=== PATIENT | male | born 1955 | race Caucasian/White ===

== ENCOUNTER 2016-11-25 15:07 | Emergency (ER) | payer BC, OTHER ==
[~2016-11-25] VITALS: Ht 172.7 cm; Wt 79.4 kg
[2016-11-25] MEDS ORDERED: MECLIZINE HCL 25 MG TABLET ONE (15:23)
[2016-11-25] MEDS ORDERED: MECLIZINE HCL 12.5 MG TABLET PO ONE (15:30)
--- NOTE | 2016-11-25 15:49 | NUR ---
BIB SELF - DIZZINESS , NAUSEA AND VOMITING SINCE THIS MORNING, VSS, NAD NOTED, PUT ON TELE MONITOR, SKIN WARM AND DRY, RESP EVEN AND UNLABORED. MD AT BEDSIDE FOR EVAL
[2016-11-25 15:50] VITALS: BP 129/85
--- NOTE | 2016-11-25 15:50 | NUR ---
Patient discharged to home in stable condition. Written and verbal after care instructions given. Patient verbalizes understanding of instruction.
== END 2016-11-25 15:52 | disposition home or self-care (01) ==
LOC: ER 15:09
DX: R42 Dizziness and giddiness (principal); R11.2 Nausea with vomiting, unspecified; I10 Essential (primary) hypertension
CPT/HCPCS: 93005; 99283; A4606; J8597; Z7610

== ENCOUNTER 2016-11-30 09:23 | Outpatient (CLI) | payer BC, OTHER ==
[2016-11-30 10:19] LABS: BASOPHILS % (AUTO) 0.4 % (0.0-2.0); EOSINOPHILS # (AUTO) 0.2 /CMM (0.0-0.7); EOSINOPHILS % (AUTO) 2.7 % (0.0-6.0); HEMATOCRIT 50 % (39-51); HEMOGLOBIN 16.4 g/dL (13.5-17.5); LYMPHOCYTES # (AUTO) 1.9 /CMM (0.8-4.8); LYMPHOCYTES % (AUTO) 28.2 % (20.0-44.0); MEAN CORPUSCULAR HEMOGLOBIN 30 PG (26.0-33.0); MEAN CORPUSCULAR HGB CONC 33 g/dl (31.0-36.0); MEAN CORPUSCULAR VOLUME 92 fL (80-96); MONOCYTES # (AUTO) 0.5 /CMM (0.1-1.30); MONOCYTES % (AUTO) 7.2 % (2.0-12.0); NEUTROPHILS # (AUTO) 4.1 /CMM (1.8-8.9); NEUTROPHILS % (AUTO) 61.5 % (43.0-81.0); PLATELET COUNT (AUTO) 270 /CMM (150-450); RDW COEFFICIENT OF VARIATION 13.6 (11.5-15.0); RED BLOOD CELL COUNT(AUTO) 5.39 MIL/uL (4.5-6.0); WHITE BLOOD COUNT (AUTO) 6.7 K/uL (4.3-11.0)
[2016-11-30 10:24] LABS: APPEARANCE,URINE CLEAR (CLEAR); BILIRUBIN,URINE NEGATIVE (NEGATIVE); BLOOD, URINE NEGATIVE Ery/uL (NEGATIVE); COLOR,URINE ORANGE (YELLOW); KETONES,URINE NEGATIVE (NEGATIVE); LEUKOCYTE ESTERASE ,URINE NEGATIVE (NEGATIVE); NITRITE, URINE NEGATIVE (NEGATIVE); PH,URINE 5.5 (5.0-8.0); PROTEIN,URINE NEGATIVE (NEGATIVE); UGLUCOSE NEGATIVE (NEGATIVE); UROBILINOGEN,URINE 0.2 EU/dL (0.2)
[2016-11-30 10:38] LABS: ALBUMIN 4.4 g/dL (3.4-5.0); BILIRUBIN,TOTAL 1.5 mg/dL (0.2-1.0); CALCIUM, SERUM 8.8 mg/dL (8.5-10.1); CREATININE 0.9 mg/dL (0.6-1.3); POTASSIUM 3.7 mmol/L (3.5-5.1); TOTAL PROTEIN, SERUM 8.6 g/dL (6.4-8.2)
[2016-11-30 10:39] LABS: BACTERIA,URINE None seen /HPF (None Seen); RBC,URINE NONE SEEN /HPF (0-2); SQUAMOUS EPITHELIAL CELL,UR Few /HPF (None Seen); WBC,URINE 0-2 /HPF (0-3)
[2016-11-30 10:51] LABS: PROSTATE SPECIFIC ANTIGEN SCR 0.68 ng/mL (0.00-4.00); THYROID STIMULATING HORMONE 0.915 uIU/mL (0.358-3.74)
[2016-12-02 16:15] LABS: *TESTOSTERONE, FREE (DIRECT) 7.8 pg/mL (6.6-18.1)
== END 2016-11-30 23:59 | disposition home or self-care (01) ==
LOC: LAB 09:23
PROVIDERS: ATTEND Legal Medicine
DX: Z00.01 Encounter for general adult medical examination with abnormal findings (principal); R79.89 Other specified abnormal findings of blood chemistry; E78.5 Hyperlipidemia, unspecified; E55.9 Vitamin D deficiency, unspecified
CPT/HCPCS: 36415; 80053-TC; 80061-TC; 81000-TC; 82306; 84153-TC; 84402-TC; 84439-TC; 84443-TC; 84550-TC; 85025-TC

== ENCOUNTER 2018-02-01 08:32 | Outpatient (CLI) | payer BC ==
[2018-02-01 11:56] LABS: BASOPHILS % (AUTO) 0.7 % (0.0-2.0); EOSINOPHILS % (AUTO) 3.5 % (0.0-6.0); HEMATOCRIT 57 % (39-51); HEMOGLOBIN 18.8 g/dL (13.5-17.5); LYMPHOCYTES # (AUTO) 2.1 /CMM (0.8-4.8); MEAN CORPUSCULAR HGB CONC 33 g/dl (31.0-36.0); MEAN CORPUSCULAR VOLUME 96 fL (80-96); MONOCYTES # (AUTO) 0.6 /CMM (0.1-1.30); MONOCYTES % (AUTO) 8.8 % (2.0-12.0); NEUTROPHILS # (AUTO) 3.6 /CMM (1.8-8.9); PLATELET COUNT (AUTO) 228 /CMM (150-450); RED BLOOD CELL COUNT(AUTO) 5.95 MIL/uL (4.5-6.0); WHITE BLOOD COUNT (AUTO) 6.5 K/uL (4.3-11.0)
[2018-02-01 11:57] LABS: APPEARANCE,URINE CLEAR (CLEAR); BILIRUBIN,URINE NEGATIVE (NEGATIVE); BLOOD, URINE NEGATIVE Ery/uL (NEGATIVE); COLOR,URINE YELLOW (YELLOW); KETONES,URINE NEGATIVE (NEGATIVE); LEUKOCYTE ESTERASE ,URINE NEGATIVE (NEGATIVE); NITRITE, URINE NEGATIVE (NEGATIVE); PROTEIN,URINE NEGATIVE (NEGATIVE); UGLUCOSE NEGATIVE (NEGATIVE); UROBILINOGEN,URINE 0.2 EU/dL (0.2)
[2018-02-01 12:12] LABS: BILIRUBIN,TOTAL 1.8 mg/dL (0.2-1.0); CALCIUM, SERUM 8.8 mg/dL (8.5-10.1); POTASSIUM 4.1 mmol/L (3.5-5.1); TOTAL PROTEIN, SERUM 8.5 g/dL (6.4-8.2)
[2018-02-01 12:24] LABS: FREE T4 (FREE THYROXINE) 1.17 ng/dL (0.76-1.46); PROSTATE SPECIFIC ANTIGEN SCR 0.69 ng/mL (0.00-4.00); THYROID STIMULATING HORMONE 1.672 uIU/mL (0.358-3.74)
[2018-02-02 12:12] LABS: *FOLIC ACID 8.2 ng/mL (>3.0)
== END 2018-02-01 23:59 | disposition home or self-care (01) ==
LOC: LAB 08:32
PROVIDERS: ATTEND Legal Medicine
DX: Z00.01 Encounter for general adult medical examination with abnormal findings (principal); E11.9 Type 2 diabetes mellitus without complications; I10 Essential (primary) hypertension; E78.5 Hyperlipidemia, unspecified
CPT/HCPCS: 36415; 80053-TC; 80061-TC; 81000-TC; 82306; 82728-TC; 83540-TC; 84153-TC; 84403; 84439-TC; 84443-TC; 85025-TC; 85045-TC

== ENCOUNTER 2018-08-25 21:32 | Emergency (ER) | payer BC, OTHER ==
[~2018-08-25] VITALS: Ht 172.7 cm; Wt 78.9 kg
[2018-08-25 21:38] VITALS: BP 150/78
[2018-08-25] MEDS ORDERED: TDAP [DIPH/PERTUSSIS/TET] 0.5 ML VIAL IM ONE ×2 (22:27→22:30)
[2018-08-25] MEDS ORDERED: AMOX/CLAVULANATE 875 MG TABLET ONE (22:27)
[2018-08-25] MEDS ORDERED: AMOX/CLAVULANATE 875 MG TABLET PO ONE (22:30)
--- NOTE | 2018-08-25 22:36 | NUR ---
Patient discharged to home in stable condition. Written and verbal after care instructions given. Patient verbalizes understanding of instruction. Pt ambulatory with a steady gait
== END 2018-08-25 22:40 | disposition home or self-care (01) ==
LOC: ER 21:36
DX: S51.851A Open bite of right forearm, initial encounter (principal); I10 Essential (primary) hypertension; W50.3XXA Accidental bite by another person, initial encounter; Y93.89 Activity, other specified; Y92.89 Other specified places as the place of occurrence of the external cause; Y99.8 Other external cause status
CPT/HCPCS: 90715

== ENCOUNTER 2019-04-09 08:38 | Outpatient (CLI) | payer BC ==
[2019-04-09 09:55] LABS: ALBUMIN 3.9 g/dL (3.4-5.0); BILIRUBIN,TOTAL 2.1 mg/dL (0.2-1.0); CALCIUM, SERUM 8.5 mg/dL (8.5-10.1); POTASSIUM 4.2 mmol/L (3.5-5.1); TOTAL PROTEIN, SERUM 8.1 g/dL (6.4-8.2)
== END 2019-04-09 23:59 | disposition home or self-care (01) ==
LOC: LAB 08:38
PROVIDERS: ATTEND Internal Medicine Cardiovascular Disease
DX: I10 Essential (primary) hypertension (principal); E78.5 Hyperlipidemia, unspecified
CPT/HCPCS: 36415; 80053-TC; 80061-TC

== ENCOUNTER 2019-08-20 18:09 | Emergency (ER) | payer BC, OTHER ==
[~2019-08-20] VITALS: Ht 172.7 cm; Wt 78.9 kg
[2019-08-20] MEDS ORDERED: ONDANSETRON HCL/PF 4 MG/2 ML VIAL IVP ONE (18:30)
[2019-08-20] MEDS ORDERED: KETOROLAC TROMETHAMINE INJ 30 MG/ML VIAL IV ONE (18:30)
[2019-08-20] MEDS ORDERED: ONDANSETRON HCL/PF 4 MG/2 ML VIAL ONE ×2 (18:37→19:45)
[2019-08-20] MEDS ORDERED: KETOROLAC TROMETHAMINE 15 MG/ML VIAL ONE (18:37)
[2019-08-20 18:43] LABS: BASOPHILS # (AUTO) 0.1 /CMM (0.0-0.2); BASOPHILS % (AUTO) 0.9 % (0.0-2.0); EOSINOPHILS % (AUTO) 2.6 % (0.0-6.0); HEMATOCRIT 51 % (39-51); HEMOGLOBIN 17.6 g/dL (13.5-17.5); LYMPHOCYTES # (AUTO) 2.1 /CMM (0.8-4.8); LYMPHOCYTES % (AUTO) 33.6 % (20.0-44.0); MEAN CORPUSCULAR HGB CONC 34 g/dl (31.0-36.0); MEAN CORPUSCULAR VOLUME 95 fL (80-96); MONOCYTES # (AUTO) 0.6 /CMM (0.1-1.30); MONOCYTES % (AUTO) 9.5 % (2.0-12.0); NEUTROPHILS # (AUTO) 3.3 /CMM (1.8-8.9); NEUTROPHILS % (AUTO) 53.4 % (43.0-81.0); PLATELET COUNT (AUTO) 234 /CMM (150-450); RED BLOOD CELL COUNT(AUTO) 5.39 MIL/uL (4.5-6.0); WHITE BLOOD COUNT (AUTO) 6.1 K/uL (4.3-11.0)
--- NOTE | 2019-08-20 18:50 | NUR ---
patient came in to the er c/o epigastric pain radiating to back. on room air, breathing evenly and unlabored. connected to the monitor and pulse ox. kept comfortable, will continue to monitor accordingly.
--- NOTE | 2019-08-20 18:51 | NUR ---
automotive refinish technician at bedside for exam
[2019-08-20 18:52] LABS: APPEARANCE,URINE Clear (CLEAR); BILIRUBIN,URINE Negative (NEGATIVE); BLOOD, URINE Trace-intact Ery/uL (NEGATIVE); COLOR,URINE Yellow (YELLOW); KETONES,URINE Negative (NEGATIVE); LEUKOCYTE ESTERASE ,URINE Negative (NEGATIVE); NITRITE, URINE Negative (NEGATIVE); PH,URINE 7.5 (5.0-8.0); PROTEIN,URINE Negative (NEGATIVE); UGLUCOSE 500 MG/DL mg/dL (NEGATIVE); UROBILINOGEN,URINE 0.2 EU/dL (0.2)
[2019-08-20 18:59] LABS: ALBUMIN 4.3 g/dL (3.4-5.0); BILIRUBIN,DIRECT 0.1 mg/dL (0.0-0.2); BILIRUBIN,TOTAL 0.7 mg/dL (0.2-1.0); CALCIUM, SERUM 8.7 mg/dL (8.5-10.1); CREATININE 1.3 mg/dL (0.6-1.3); POTASSIUM 3.6 mmol/L (3.5-5.1); TOTAL PROTEIN, SERUM 8.5 g/dL (6.4-8.2)
--- NOTE | 2019-08-20 19:00 | NUR ---
REPORT REC'D FROM ONUR PINEDA FOR [facility].
[2019-08-20 19:04] LABS: BACTERIA,URINE Rare /HPF (None Seen); SQUAMOUS EPITHELIAL CELL,UR Few /HPF (None Seen); WBC,URINE NONE SEEN /HPF (0-3)
--- NOTE | 2019-08-20 19:15 | NUR ---
PT AMBULATED TO THE BATHROOM WITH A STEADY GAIT.
[2019-08-20] MEDS ORDERED: MORPHINE SULFATE INJ 2 MG/ML DISP.SYRIN ONE ×2 (19:45→20:34)
--- NOTE | 2019-08-20 19:45 | NUR ---
PT C/O EPIGASTRIC PAIN. PT STATED THAT HE WILL GET SOMEONE TO TAKE HIM HOME. PT WILL LEAVE HIS CAR IN THE PARKING LOT. NOTIFIED.
[2019-08-20] MEDS ORDERED: MORPHINE SULFATE INJ 2 MG/ML DISP.SYRIN IV ONE ×2 (20:00→20:30)
[2019-08-20] MEDS ORDERED: ONDANSETRON HCL/PF - ER 4 MG/2 ML VIAL IV ONE (20:00)
--- NOTE | 2019-08-20 20:37 | NUR ---
PT IS STILL C/O EPIGASTRIC PAIN. DR MAZA IS AWARE. NEW ORDERS GIVEN AND CARRIED OUT BY ONUR LAYTON.
--- NOTE | 2019-08-20 20:50 | NUR ---
IV removed. Catheter intact and site benign. Pressure and 4x4 applied to site. No bleeding noted. Patient discharged to home in stable condition. Written and verbal after care instructions given. Patient verbalizes understanding of instruction.
[2019-08-20 21:08] VITALS: BP 145/91
== END 2019-08-20 21:08 | disposition home or self-care (01) ==
LOC: ER 18:15
DX: K80.50 Calculus of bile duct without cholangitis or cholecystitis without obstruction (principal); R73.9 Hyperglycemia, unspecified; K76.0 Fatty (change of) liver, not elsewhere classified; I10 Essential (primary) hypertension
CPT/HCPCS: 36415; 76705; 80048; 80076; 81001; 83690; 85025; 93005; 96374; 96375; 96376; 99285; J1885; J2270 ×2; J2405 ×3; 81000-TC

== ENCOUNTER 2019-08-22 07:13 | Inpatient (IN) | payer BC, OTHER ==
[~2019-08-22] VITALS: Ht 170.2 cm; Wt 79.4 kg
[2019-08-22] MEDS ORDERED: PIPERACILLIN /TAZOBACTAM 3.375 G in IV D5W 50 ML IV ONE (07:30)
--- NOTE | 2019-08-22 07:35 | NUR ---
CALLED PHARMACY FOR ANTIBIOTIC.
[2019-08-22] MEDS ORDERED: PIPERACILLIN /TAZOBACTAM 3.375 G VIAL IV ONE (07:42)
[2019-08-22] MEDS ORDERED: AMLO10TA7 PO (07:48)
[2019-08-22] MEDS ORDERED: BENA10TA74 PO (07:48)
[2019-08-22 07:51] LABS: BASOPHILS # (AUTO) 0.1 /CMM (0.0-0.2); BASOPHILS % (AUTO) 0.8 % (0.0-2.0); EOSINOPHILS % (AUTO) 0.4 % (0.0-6.0); HEMATOCRIT 48 % (39-51); HEMOGLOBIN 16.3 g/dL (13.5-17.5); LYMPHOCYTES # (AUTO) 1.4 /CMM (0.8-4.8); LYMPHOCYTES % (AUTO) 8.9 % (20.0-44.0); MEAN CORPUSCULAR HGB CONC 34 g/dl (31.0-36.0); MEAN CORPUSCULAR VOLUME 95 fL (80-96); MONOCYTES # (AUTO) 1.4 /CMM (0.1-1.30); NEUTROPHILS # (AUTO) 12.8 /CMM (1.8-8.9); NEUTROPHILS % (AUTO) 80.9 % (43.0-81.0); PLATELET COUNT (AUTO) 216 /CMM (150-450); RED BLOOD CELL COUNT(AUTO) 5.07 MIL/uL (4.5-6.0); WHITE BLOOD COUNT (AUTO) 15.8 K/uL (4.3-11.0)
[2019-08-22 07:59] LABS: CALCIUM, SERUM 8.7 mg/dL (8.5-10.1); CREATININE 1.2 mg/dL (0.6-1.3); POTASSIUM 4.2 mmol/L (3.5-5.1)
--- NOTE | 2019-08-22 08:00 | NUR ---
patient came in to the er c/o "Abdominal Pain- was seen here last monday dx gallstones- Pain still there. on room air breathing evenly and unlabored connected the monitor and pulse ox. will continue to monitor accordingly.
[2019-08-22 08:05] LABS: ALBUMIN 3.6 g/dL (3.4-5.0); BILIRUBIN,DIRECT 0.3 mg/dL (0.0-0.2); BILIRUBIN,TOTAL 2.9 mg/dL (0.2-1.0); TOTAL PROTEIN, SERUM 7.4 g/dL (6.4-8.2)
[2019-08-22 08:10] LABS: APPEARANCE,URINE Clear (CLEAR); BACTERIA,URINE Rare /HPF (None Seen); BILIRUBIN,URINE Negative (NEGATIVE); BLOOD, URINE Trace-intact Ery/uL (NEGATIVE); COLOR,URINE Yellow (YELLOW); KETONES,URINE Trace (NEGATIVE); LEUKOCYTE ESTERASE ,URINE Negative (NEGATIVE); NITRITE, URINE Negative (NEGATIVE); PROTEIN,URINE 30 mg/dl (NEGATIVE); SQUAMOUS EPITHELIAL CELL,UR Rare /HPF (None Seen); UGLUCOSE Negative (NEGATIVE); WBC,URINE 0-2 /HPF (0-3)
--- NOTE | 2019-08-22 08:16 | NUR ---
NURSING SUP GAVE M/S 207-1.
--- NOTE | 2019-08-22 08:19 | NUR ---
PAGED [facility].
--- NOTE | 2019-08-22 08:23 | NUR ---
report given to lilian davis for los
[2019-08-22] MEDS ORDERED: MORPHINE SULFATE INJ 2 MG/ML DISP.SYRIN IV ONE (08:30)
[2019-08-22] MEDS ORDERED: ONDANSETRON HCL/PF 4 MG/2 ML VIAL IVP ONE (08:30)
[2019-08-22] MEDS ORDERED: ONDANSETRON HCL/PF 4 MG/2 ML VIAL ONE (08:31)
[2019-08-22] MEDS ORDERED: MORPHINE SULFATE INJ 4 MG/ML DISP.SYRIN ONE (08:32)
--- NOTE | 2019-08-22 08:35 | NUR ---
PAGED DR. MONTES.
--- NOTE | 2019-08-22 09:01 | NUR ---
wheeled patient via gurney accompanied by EMT in no distress. RN at bedside to assume care.
[2019-08-22 09:30] VITALS: BP 130/67
[2019-08-22 12:00] VITALS: BP 133/76
--- NOTE | 2019-08-22 12:15 | NUR ---
RN NOTE Patient received from Leeann MOHR for WIL[facility]. Patient is A/O x4, showing no signs of acute distress or SOB, stable on RA. Vital signs 133/76 HR 100 O2 96% on RA T 99.2 F. IV line in the LAC #18g is clean and intact flushing well. Skin is intact. Patient picked up by radiology at this time for HIDA scan. Consent signed and placed in chart. Will continue with plan of care.
[2019-08-22] MEDS ORDERED: ONDANSETRON HCL/PF 4 MG/2 ML VIAL IV PRN (12:30)
[2019-08-22] MEDS: ENOXAPARIN SODIUM 40 MG/0.4 ML DISP.SYRIN SQ SCH (13:00)
--- NOTE | 2019-08-22 14:34 | NUR ---
RN NOTE Patient has returned from HIDA scan and MRCP. Ok per Sis DIRECTOR OF CARDIOLOGY SERVICE LINE to start patient on clear liquids and then NPO after midnight.
[2019-08-22] MEDS: IV D5/ 0.9% NACL 1,000 ML IV SCH (14:47)
[2019-08-22] MEDS: PANTOPRAZOLE 40 MG VIAL IV SCH (14:49)
[2019-08-22] MEDS: MORPHINE SULFATE INJ 2 MG/ML DISP.SYRIN IV PRN ×2 (14:51→21:27)
[2019-08-22] MEDS: PIPERACILLIN /TAZOBACTAM 3.375 G in IV D5W 100 ML IV SCH ×2 (15:57→21:27)
[2019-08-22 16:00] VITALS: BP 137/74
--- NOTE | 2019-08-22 16:00 | NUR ---
RN NOTE COVID swab sent to lab.
--- NOTE | 2019-08-22 16:32 | NUR ---
RN NOTE Patient has temp of 100.1. Cooling measures implemented, tylenol given.
[2019-08-22] MEDS: ACETAMINOPHEN 650 MG/20.3 ML UDC NG PRN (16:33)
--- NOTE | 2019-08-22 19:00 | NUR ---
RN CLOSING NOTE Patient is resting in bed, A/O x4, showing no signs of acute distress or SOB, stable on RA. IV line inserted in right hand #20g flushing well. All patient needs met, all due medications given. Patient is to be NPO after midnight. Bed is in lowest position, side rails x3 in upright position, call light is within reach, fall safety and aspiration precautions enforced. Will endorse to night filler.
--- NOTE | 2019-08-22 19:30 | NUR ---
MS RN RECEIVE PT IN BED A/O X 4, NOT IN DISTRESS, STABLE. SAFETY MEASURES AT ALL TIMES. WILL CONT TO MONITOR.
[2019-08-22 20:00] VITALS: BP 114/66
[2019-08-22 20:27] VITALS: BP 114/66
[2019-08-23] MEDS: IV D5/ 0.9% NACL 1,000 ML IV SCH ×3 (02:07→20:42)
[2019-08-23] MEDS: MORPHINE SULFATE INJ 2 MG/ML DISP.SYRIN IV PRN ×3 (02:08→18:45)
[2019-08-23] MEDS: PIPERACILLIN /TAZOBACTAM 3.375 G in IV D5W 100 ML IV SCH ×3 (05:04→21:01)
--- NOTE | 2019-08-23 06:08 | NUR ---
MS RN SLEPT WELL, AFEBRILE. NO S/S OF DISTRESS. MONITORED FOR PAIN. MEDICATED WITH PRN PAIN MEDS WITH RELIEF. ALL NEEDS ATTENDED AND ANTICIPATED, KEPT CLEAN, DRY AND COMFORTABLE. AM CARE RENDERED, SAFETY MEASURES AT ALL TIMES. WILL ENDORSE TO NEXT SHIFT.
[2019-08-23 08:00] VITALS: BP 111/70
[2019-08-23 08:58] LABS: MAGNESIUM 2.1 mg/dL (1.8-2.4); PHOSPHORUS 2.6 mg/dL (2.5-4.9)
[2019-08-23] MEDS: BENAZEPRIL HCL 10 MG TABLET PO SCH (09:00)
[2019-08-23] MEDS: ENOXAPARIN SODIUM 40 MG/0.4 ML DISP.SYRIN SQ SCH (09:00)
[2019-08-23] MEDS: AMLODIPINE BESYLATE 10 MG TABLET PO SCH (09:00)
[2019-08-23 12:07] LABS: THYROID STIMULATING HORMONE 1.135 uIU/mL (0.358-3.74)
[2019-08-23] MEDS ORDERED: LIDOCAINE HCL/MPF 1% 30 ML VIAL IJ ONE (12:41)
[2019-08-23] MEDS ORDERED: BUPIVACAINE MPF 0.5% W/EPI INJ 30 ML VIAL ONE (12:42)
[2019-08-23] MEDS ORDERED: FENTANYL PF 100MCG/2ML AMPUL ONE (14:20)
[2019-08-23 16:00] VITALS: BP 111/62
[2019-08-23] MEDS: ACETAMINOPHEN 650 MG/20.3 ML UDC NG PRN (16:42)
[2019-08-23] MEDS: PANTOPRAZOLE 40 MG VIAL IV SCH (16:44)
--- NOTE | 2019-08-23 19:30 | NUR ---
MS RN RECEIVE PT IN BED A/O X 4, BRAULIO DRAIN INTACT, S/P SX, NO C/O OF PAIN, NO S/S OF DISTRESS, SAFETY MEASURES AT ALL TIMES. WILL CONT TO MONITOR
[2019-08-23 20:00] VITALS: BP 116/66
[2019-08-23 20:21] VITALS: BP 116/66
[2019-08-24] MEDS: IV D5/ 0.9% NACL 1,000 ML IV SCH ×3 (04:48→21:09)
[2019-08-24] MEDS: MORPHINE SULFATE INJ 2 MG/ML DISP.SYRIN IV PRN ×3 (04:49→21:43)
[2019-08-24] MEDS: PIPERACILLIN /TAZOBACTAM 3.375 G in IV D5W 100 ML IV SCH ×3 (05:00→21:12)
--- NOTE | 2019-08-24 05:49 | NUR ---
MS RN PT SLEPT WELL. BRAULIO DRAIN CLEAN AND INTACT. MONITORED FOR PAIN, NEEDS ATTENDED AND ANTICIPATED, KEPT CLEAN, DRY AND COMFORTABLE. NURSING CARE RENDERED, SAFETY MEASURES AT ALL TIMES. WILL ENDORSE TO NEXT SHIFT.
[2019-08-24 07:14] LABS: BASOPHILS % (AUTO) 0.2 % (0.0-2.0); HEMATOCRIT 46 % (39-51); HEMOGLOBIN 15.2 g/dL (13.5-17.5); LYMPHOCYTES # (AUTO) 0.8 /CMM (0.8-4.8); LYMPHOCYTES % (AUTO) 6.8 % (20.0-44.0); MEAN CORPUSCULAR HGB CONC 33 g/dl (31.0-36.0); MEAN CORPUSCULAR VOLUME 96 fL (80-96); MONOCYTES # (AUTO) 0.8 /CMM (0.1-1.30); NEUTROPHILS # (AUTO) 9.5 /CMM (1.8-8.9); PLATELET COUNT (AUTO) 225 /CMM (150-450)
[2019-08-24 07:23] LABS: BILIRUBIN,TOTAL 2.6 mg/dL (0.2-1.0); CALCIUM, SERUM 8.4 mg/dL (8.5-10.1); MAGNESIUM 2.2 mg/dL (1.8-2.4); PHOSPHORUS 2.5 mg/dL (2.5-4.9); POTASSIUM 3.6 mmol/L (3.5-5.1); TOTAL PROTEIN, SERUM 7.8 g/dL (6.4-8.2)
--- NOTE | 2019-08-24 07:40 | NUR ---
MS RN NOTES RECEIVED PATIENT IN BED RESTING COMFORTABLY IN MODERATE HIGH BACK REST. A/O X4. ABLE TO MAKE NEEDS KNOWN. NO SIGNS OF DISTRESS NOTED AT THIS TIME. NOTED WITH BRAULIO DRAIN CLEAN AND INTACT. IV FLUIDS ON RIGHT HAND #20 WITH D5NS RUNNING @75 ML/HR. PATENT AND INTACT, SAFETY MEASURES IN PLACE WITH BED IN LOWEST LOCKED POSITION WITH SIDE RAILS UP X2. CALL LIGHT WITHIN REACH. WILL CONTINUE TO MONITOR.
[2019-08-24 08:00] VITALS: BP 138/78
[2019-08-24] MEDS ORDERED: IBUPROFEN 600 MG TABLET PO PRN (08:00)
[2019-08-24] MEDS: BENAZEPRIL HCL 10 MG TABLET PO SCH (09:17)
[2019-08-24] MEDS: AMLODIPINE BESYLATE 10 MG TABLET PO SCH (09:17)
[2019-08-24] MEDS: ENOXAPARIN SODIUM 40 MG/0.4 ML DISP.SYRIN SQ SCH (09:23)
[2019-08-24] MEDS: HYDROCODONE/APAP 5/325MG 1 EACH TABLET PO PRN (09:48)
[2019-08-24] MEDS ORDERED: BISACODYL (5 MG) 5 MG TABLET.DR PO PRN (11:30)
[2019-08-24] MEDS ORDERED: BISACODYL (5 MG) 5 MG TABLET.DR PO ONE (11:30)
[2019-08-24] MEDS: PANTOPRAZOLE 40 MG VIAL IV SCH (11:37)
--- NOTE | 2019-08-24 18:50 | NUR ---
MS RN NOTES PATIENT IN BED RESTING COMFORTABLY IN MODERATE HIGH BACK REST. A/O X4. ABLE TO MAKE NEEDS KNOWN. NO SIGNS OF DISTRESS NOTED THROUGHOUT THE SHIFT. PAIN IS MANAGEABLE WITH PAIN MEDICATION, NOTED WITH BRAULIO DRAIN WITH OUTPUT OF 40ML, CLEAN AND INTACT. IV FLUIDS ON RIGHT HAND #20 WITH D5NS RUNNING @75 ML/HR. PATENT AND INTACT, SAFETY MEASURES IN PLACE WITH BED IN LOWEST LOCKED POSITION WITH SIDE RAILS UP X2. CALL LIGHT WITHIN REACH. WILL ENDORSE TO CORPORATE DIRECTOR OF HUMAN RESOURCES NURSE FOR [facility].
--- NOTE | 2019-08-24 19:23 | NUR ---
MS RN RECEIVE PT WALKING IN ROOM A/O X 4, NOT IN DISTRESS, BRAULIO DRAIN INTACT. STABLE. SAFETY MEASURES AT ALL TIMES. WILL CONT TO MONITOR.
[2019-08-24 20:00] VITALS: BP 135/74
[2019-08-24 20:20] VITALS: BP 135/74
--- NOTE | 2019-08-24 21:43 | NUR ---
MS RN PT REQUEST MORPHINE 2 MG IVP PER PT NORCO INEFFECTIVE AT THIS TIME. PAIN IN ABDOMEN. WILL GIVE MORPHINE
[2019-08-25] MEDS: HYDROCODONE/APAP 5/325MG 1 EACH TABLET PO PRN ×2 (02:44→10:14)
[2019-08-25] MEDS: IV D5/ 0.9% NACL 1,000 ML IV SCH (05:11)
[2019-08-25] MEDS: PIPERACILLIN /TAZOBACTAM 3.375 G in IV D5W 100 ML IV SCH ×2 (05:11→14:00)
--- NOTE | 2019-08-25 05:47 | NUR ---
MS RN NO SIGNIFICANT CHANGES, GOOD SKIN CARE AT ALL TIMES, MONITORED ACCORDINGLY, NEEDS ATTENDED AND ANTICIPATED, KEPT CLEAN, DRY AND COMFORTABLE. SAFETY MEASURES AT ALL TIMES. WILL ENDORSE TO NEXT SHIFT.
--- NOTE | 2019-08-25 07:10 | NUR ---
MS RN NOTES RECEIVED PATIENT IN BED RESTING COMFORTABLY IN MODERATE HIGH BACK REST. A/O X4. ABLE TO MAKE NEEDS KNOWN. NO SIGNS OF DISTRESS NOTED AT THIS TIME. NOTED WITH BRAULIO DRAIN CLEAN AND INTACT. IV FLUIDS ON LEFT HAND #22 WITH D5NS RUNNING @125 ML/HR. PATENT AND INTACT, SAFETY MEASURES IN PLACE WITH BED IN LOWEST LOCKED POSITION WITH SIDE RAILS UP X2. CALL LIGHT WITHIN REACH. WILL CONTINUE TO MONITOR.
[2019-08-25 08:00] VITALS: BP 126/73
[2019-08-25] MEDS: ENOXAPARIN SODIUM 40 MG/0.4 ML DISP.SYRIN SQ SCH (08:30)
[2019-08-25 08:35] VITALS: BP 126/73
[2019-08-25] MEDS: AMLODIPINE BESYLATE 10 MG TABLET PO SCH (08:35)
[2019-08-25] MEDS: BENAZEPRIL HCL 10 MG TABLET PO SCH (08:35)
[2019-08-25] MEDS: PANTOPRAZOLE 40 MG VIAL IV SCH (11:42)
[2019-08-25] MEDS ORDERED: AMOX-430 PO (14:01)
[2019-08-25] MEDS ORDERED: ONDA4TAB5 PO (14:01)
[2019-08-25] MEDS ORDERED: HYDR-4384 PO (14:01)
--- NOTE | 2019-08-25 14:39 | NUR ---
LENS CLEANER NOTES PATIENT DISCHARGED IN STABLE CONDITION. A/O X 4. ABLE TO MAKE NEEDS KNOWN. V/S TAKEN, STABLE AND RECORDED. PATIENT'S IV REMOVED AND APPLIED PRESSURE DRESSINGS. NAME ARM BAND REMOVED. SKIN IS INTACT. ALL BELONGINGS CHECKED AND SIGNED. NAME ARM BAND REMOVED. HEALTH TEACHINGS/DISCHARGED INSTRUCTIONS GIVEN AND VERBALIZED UNDERSTANDING. PATIENT LEFT UNIT AMBULATORY WITH NO SIGNS OF DISTRESS NOTED, ACCOMPANIED BY . CHARGE NURSE AWARE OF DISCHARGED.
== END 2019-08-25 14:40 | disposition home or self-care (01) | DRG 406 ==
LOC: ER 07:13 → MEDSG2 08:46
PROVIDERS: ADMIT Legal Medicine; ATTEND Legal Medicine
PROC: 0WQF0ZZ Repair Abdominal Wall, Open Approach (ICD-10-PCS; principal; 2019-08-23)
PROC: 0FB00ZZ Excision of Liver, Open Approach (ICD-10-PCS; principal; 2019-08-23)
PROC: 0FT40ZZ Resection of Gallbladder, Open Approach (ICD-10-PCS; principal; 2019-08-23)
DX: K80.12 Calculus of gallbladder with acute and chronic cholecystitis without obstruction (principal); N17.9 Acute kidney failure, unspecified; D72.829 Elevated white blood cell count, unspecified; I10 Essential (primary) hypertension; Z79.899 Other long term (current) drug therapy; I70.0 Atherosclerosis of aorta; K59.00 Constipation, unspecified; M19.90 Unspecified osteoarthritis, unspecified site; Z87.891 Personal history of nicotine dependence; K82.8 Other specified diseases of gallbladder; K76.0 Fatty (change of) liver, not elsewhere classified; K40.20 Bilateral inguinal hernia, without obstruction or gangrene, not specified as recurrent; Z98.890 Other specified postprocedural states; K43.9 Ventral hernia without obstruction or gangrene; K82.A1 Gangrene of gallbladder in cholecystitis; R73.9 Hyperglycemia, unspecified
CPT/HCPCS: 36415; 71045-TC; 74181-TC; 78226; 80048-TC; 80053-TC; 80061-TC; 80076-TC; 81000-TC; 83605-TC; 83735-TC; 84100-TC; 84439-TC; 84443-TC; 85025-TC; 85730-TC; 87040-TC; 87081-TC; 88304-TC; 88307-TC; 88313-TC; 93307-TC; A9537; C9113; G0378; J1100; J1650; J1885; J2270; J2405; J2543; J2710; J3010; J3490; J7042; J7060; U0003-CS

== ENCOUNTER 2019-10-14 09:02 | Outpatient (CLI) | payer BC, OTHER ==
[~2019-10-14 09:02] MED LIST: AMLO10TA7 PO; AMOX-430 PO; BENA10TA74 PO; HYDR-4384 PO; ONDA4TAB5 PO
== END 2019-10-14 23:59 | disposition home or self-care (01) ==
LOC: LAB 09:02
PROVIDERS: ATTEND Legal Medicine
DX: Z75.3 Unavailability and inaccessibility of health-care facilities (principal)

== ENCOUNTER 2019-10-21 09:35 | Outpatient (CLI) | payer BC, OTHER | END 2019-10-21 23:59 | disposition home or self-care (01) | LOC: LAB 09:35 | PROVIDERS: ATTEND Surgery | DX: Z01.812 Encounter for preprocedural laboratory examination (principal); Z11.59 Encounter for screening for other viral diseases | CPT/HCPCS: 87426; C9803 ==

== ENCOUNTER 2019-10-24 06:11 | Day surgery (SDC) | payer BC, MEDICARE ==
[2019-10-14 09:40] LABS: BASOPHILS # (AUTO) 0.1 /CMM (0.0-0.2); BASOPHILS % (AUTO) 1.8 % (0.0-2.0); EOSINOPHILS % (AUTO) 2.4 % (0.0-6.0); HEMATOCRIT 54 % (39-51); HEMOGLOBIN 17.9 g/dL (13.5-17.5); LYMPHOCYTES # (AUTO) 2.4 /CMM (0.8-4.8); LYMPHOCYTES % (AUTO) 36.7 % (20.0-44.0); MEAN CORPUSCULAR HGB CONC 33 g/dl (31.0-36.0); MEAN CORPUSCULAR VOLUME 95 fL (80-96); MONOCYTES # (AUTO) 0.4 /CMM (0.1-1.30); NEUTROPHILS # (AUTO) 3.4 /CMM (1.8-8.9); NEUTROPHILS % (AUTO) 52.1 % (43.0-81.0); PLATELET COUNT (AUTO) 226 /CMM (150-450); RED BLOOD CELL COUNT(AUTO) 5.65 MIL/uL (4.5-6.0); WHITE BLOOD COUNT (AUTO) 6.4 K/uL (4.3-11.0)
[2019-10-14 09:57] LABS: CALCIUM, SERUM 8.8 mg/dL (8.5-10.1); POTASSIUM 3.9 mmol/L (3.5-5.1)
[2019-10-14 13:29] LABS: APPEARANCE,URINE CLEAR (CLEAR); BILIRUBIN,URINE NEGATIVE (NEGATIVE); BLOOD, URINE NEGATIVE Ery/uL (NEGATIVE); COLOR,URINE YELLOW (YELLOW); KETONES,URINE NEGATIVE (NEGATIVE); LEUKOCYTE ESTERASE ,URINE NEGATIVE (NEGATIVE); NITRITE, URINE NEGATIVE (NEGATIVE); PH,URINE 6.5 (5.0-8.0); PROTEIN,URINE NEGATIVE (NEGATIVE); UGLUCOSE NEGATIVE (NEGATIVE); UROBILINOGEN,URINE 0.2 EU/dL (0.2)
--- NOTE | 2019-10-24 07:09 | NUR ---
MS/RN NOTE Patient arrived to the floor at 0625. Pre-procedure checklist completed at bedside. Vital signs taken and recorded. Attempted to insert peripheral IV 3 times without success. Belongings are kept with family. Consent for procedure, anesthesia, and blood transfusion have been signed by patient.
--- NOTE | 2019-10-24 07:10 | NUR ---
RN NOTES PATIENT RESTING IN BED. NOT IN ANY FORM OF DISTRESS. NO SOB, DENIED PAIN OR DISCOMFORT AT THIS TIME. FOR SURGERY AT 0800. ALL CONSENTS SIGNED. KEPT PATIENT SAFE AND COMFORTABLE. BED IN LOW/LOCKED MIKE HUGHES2,CALL LIGHT IN REACH. WILL CONT TO [facility]
[2019-10-24] MEDS ORDERED: ANESTHESIA TRAY IN PYXIS 1 EA TRAY MC ONE (07:21)
[2019-10-24] MEDS ORDERED: BUPIVACAINE MPF 0.5% W/EPI INJ 30 ML VIAL ONE (07:21)
[2019-10-24] MEDS ORDERED: LIDOCAINE 1% INJ 50 ML MDV IJ ONE (07:22)
--- NOTE | 2019-10-24 07:30 | NUR ---
PICKED UP FOR SURGERY
[2019-10-24] MEDS ORDERED: HYDROMORPHONE INJ 2 MG/ML DISP.SYRIN ONE (07:47)
[2019-10-24] MEDS ORDERED: ROCURONIUM BROMIDE 50 MG/5 ML ONE (07:48)
[2019-10-24] MEDS ORDERED: MIDAZOLAM HCL 2 MG/2ML VIAL ONE (07:48)
[2019-10-24] MEDS ORDERED: HYDROMORPHONE 1 MG/1 ML DISP.SYRIN ONE ×2 (09:55→10:15)
[2019-10-24 11:00] VITALS: BP 117/71
--- NOTE | 2019-10-24 11:00 | NUR ---
PATIENT CAME BACK FROM SURGERY. PATIENT IN STABLE CONDITION. AWAKE. NOT IN ANY FORM OF DISTRESS. VSS. DENIED PAIN OR DISCOMFORT AT THIS TIME. KEPT PATIENT SAFE AND COMFORTABLE. BED IN LOW/LOCKED PSOTIION. SIDERAILS UPX2,CALL LIGHT IN REACH. WILL CONT TO MONITOR ACCORDINGLY.
[2019-10-24 11:30] VITALS: BP 124/78
[2019-10-24 12:00] VITALS: BP 145/89
[2019-10-24] MEDS ORDERED: HYDROCODONE/APAP 5/325MG TABLET PO PRN (12:00)
--- NOTE | 2019-10-24 15:08 | NUR ---
DISCHARGED PATIENT IN STABLE CONDITION. DC INSTRUCTIONS GIVEN, VERBALIZED UNDERSTANDING. ALL BELONGINGS RETURNED. ACCOMPANIED TO THE LOBBY VIA WHEELCHAIR BY AJ KING. REMOVED IV ACCESS, NO COMPLICATIONS. PRESCRIPTION GIVEN
== END 2019-10-24 18:00 | disposition home or self-care (01) | DRG 351 ==
LOC: DS 06:11 → MED 06:12 → UNDOADMIN 06:12 → UNDODISIN 15:35 → DS 18:00
PROVIDERS: ATTEND Surgery
PROC: 0YQA4ZZ Repair Bilateral Inguinal Region, Percutaneous Endoscopic Approach (ICD-10-PCS; principal; 2019-10-24)
DX: K40.20 Bilateral inguinal hernia, without obstruction or gangrene, not specified as recurrent (principal); J98.11 Atelectasis; I10 Essential (primary) hypertension; E78.5 Hyperlipidemia, unspecified
CPT/HCPCS: 36415; 80048-TC; 81000-TC; 85025-TC; 85610-TC; 85730-TC; C1874; G0378; J0690; J1170; J1885; J2250; J2405; J2704; J3490

== ENCOUNTER 2020-02-19 09:59 | Inpatient (IN) | payer BC, MEDICARE ==
[~2020-02-19] VITALS: Ht 172.7 cm; Wt 78.5 kg
[~2020-02-19 09:59] MED LIST changes: +AMLO-213 PO; -AMLO10TA7 PO
--- NOTE | 2020-02-19 10:10 | NUR ---
DR MANDUJANO AT BEDSIDE FOR EVAL.
--- NOTE | 2020-02-19 10:35 | NUR ---
DATAPOWER DEVELOPER AT BEDSIDE FOR BLOOD DRAW.
[2020-02-19 10:51] LABS: BASOPHILS % (AUTO) 0.5 % (0.0-2.0); HEMATOCRIT 52 % (39-51); LYMPHOCYTES # (AUTO) 0.7 /CMM (0.8-4.8); LYMPHOCYTES % (AUTO) 13.9 % (20.0-44.0); MEAN CORPUSCULAR HGB CONC 35 g/dl (31.0-36.0); MEAN CORPUSCULAR VOLUME 95 fL (80-96); MONOCYTES % (AUTO) 18.7 % (2.0-12.0); NEUTROPHILS # (AUTO) 3.5 /CMM (1.8-8.9); NEUTROPHILS % (AUTO) 66.9 % (43.0-81.0); RED BLOOD CELL COUNT(AUTO) 5.53 MIL/uL (4.5-6.0); WHITE BLOOD COUNT (AUTO) 5.2 K/uL (4.3-11.0)
[2020-02-19 10:59] LABS: CALCIUM, SERUM 8.2 mg/dL (8.5-10.1); CARBON DIOXIDE 26 mmol/L (21-32); CHLORIDE 95 mmol/L (98-107); CREATININE 1.4 mg/dL (0.6-1.3); GLUCOSE 187 mg/dL (74-106); POTASSIUM 3.5 mmol/L (3.5-5.1); SODIUM SERUM 133 mmol/L (136-145); UREA NITROGEN, BLOOD 18 mg/dL (7-18)
[2020-02-19 11:13] LABS: ALANINE AMINOTRANSFERASE 60 U/L (12-78); ALBUMIN 2.8 g/dL (3.4-5.0); ALKALINE PHOSPHATASE 69 U/L (46-116); ASPARTATE AMINOTRANSFERASE 83 U/L (15-37); B-TYPE NATRIURETIC PEPTIDE 347 PG/ML (0-125); TOTAL PROTEIN, SERUM 7.6 g/dL (6.4-8.2)
[2020-02-19 12:04] LABS: BILIRUBIN,TOTAL 1.1 mg/dL (0.2-1.0)
--- NOTE | 2020-02-19 12:21 | NUR ---
DR MONTES PAGED FOR CONSULT, VOICEMAIL LEFT
[2020-02-19 12:47] LABS: ABG BASE EXCESS 0.8 mmol/L; ABG OXYGEN SATURATION 94.1 % (92.0-98.5); ABG PCO2 32.6 mmHg (35.0-45.0); ABG PH 7.475 (7.350-7.450); ABG PO2 65.4 mmHg (75.0-100.0); AaDO2 146.3 mmHg; COHb 0.1 % (0.5-1.5); MetHb 0.5 % (0.0-1.5); O2Hb 93.5 % (94.0-97.0); SITE, ABG Right Radial
[2020-02-19 13:00] LABS: PLATELET COUNT (AUTO) 133 /CMM (150-450)
--- NOTE | 2020-02-19 14:50 | NUR ---
TELE ADMIT FROM ER AFTER REPORT RECEIVED. PATIENT ORIENTED TO PRIMARY RN, UNIT, ROOM, BED, AND UNIT POLICIES REGARDING PATIENT CARE AND VISITING HOURS. PATIENT NOW ON CONTINUOUS TELEMETRY MONITORING. READING ON ARRIVAL WAS SR 88. PATIENT PLACED ON BEDSIDE OXYGEN AND ENCOURAGED TO CALL IF THEY NEED SOMETHING. ALL QUESTIONS AND CONCERNS ADDRESSED. PATIENT VERBALIZED UNDERSTANDING.
[2020-02-19 15:29] LABS: D-DIMER 1.18 mg/L(FEU (0.17-0.50)
[2020-02-19] MEDS ORDERED: ONDANSETRON HCL/PF 4 MG/2 ML VIAL IV PRN (16:00)
[2020-02-19] MEDS: ENOXAPARIN SODIUM 40 MG/0.4 ML DISP.SYRIN SQ SCH (16:59)
[2020-02-19] MEDS: DEXAMETHASONE SOD PHOSPHATE 10 MG/ML VIAL IV SCH (17:00)
[2020-02-19] MEDS ORDERED: DEXAMETHASONE SOD PHOSPHATE 10 MG/ML VIAL IV SCH (17:30)
[2020-02-19] MEDS: CEFTRIAXONE 1 G in IV D5W 50 ML IV SCH (18:09)
--- NOTE | 2020-02-19 19:30 | NUR ---
TELE/RN OPENING NOTES RECEIVED PATIENT IN BED RESTING. PATIENT IS ALERT AND ORIENTED X 4. NO SIGNS OF SOB OR RESPIRATORY DISTRESS NOTED. PATIENT IN NO SIGNS OF DISTRESS. TELE READING SR. PATIENT HAS IV ACCESS ON RIGHT HAND INTACT FLUSHING WELL. SAFETY MEASURES ARE IN PLACE, BED IS LOCKED AND PLACED IN THE LOW POSITION, SIDE RAILS UP X 2. CALL LIGHT IS WITHIN REACH WILL MONITOR THROUGH OUT SHIFT.
--- NOTE | 2020-02-19 19:58 | NUR ---
CHANGE OF SHIFT REPORT PT RESTING COMFORTABLY IN BED WITH EYES CLOSED. NO S/S OR C/O PAIN OR DISTRESS NOTED. SIDE RAILS UP X2, CALL LIGHT LEFT WITHIN REACH. PT KEPT CLEAN, DRY, AND COMFORTABLE NO SIGNIFICANT CHANGES SINCE ADMISSION. REPORT GIVEN TO EVELINE MOHR.
[2020-02-19 20:00] VITALS: BP 122/69
[2020-02-19] MEDS: ZITHROMAX 500 MG/250 ML D5W IV SCH ×2 (20:06)
[2020-02-19 22:33] LABS: BAND % (MANUAL) 1 % (0.0-5.0); LYMPHOCYTES % (MANUAL) 17 % (16-48); MONOCYTES % (MANUAL) 10 % (0-11.0); NEUTROPHILS % (MANUAL) 71 (42-76); REACTIVE LYMPHOCYTES 1 % (0-0)
[2020-02-20] VITALS: BP 109/64
[2020-02-20 04:00] VITALS: BP 106/70
--- NOTE | 2020-02-20 06:35 | NUR ---
TELE/RN CLOSING NOTES PATIENT IN BED SLEEPING PATIENT IS ALERT AND ORIENTED X 4. NO SIGNS OF SOB OR RESPIRATORY DISTRESS NOTED. PATIENT IN NO SIGNS OF DISTRESS. TELE READING SR. PATIENT HAS IV ACCESS ON RIGHT HAND #22G SL INTACT FLUSHING WELL. ALL NEED HAVE BEEN MET DURING SHIFT. SAFETY MEASURES ARE IN PLACE, BED IS LOCKED AND PLACED IN THE LOW POSITION, SIDE RAILS UP X 2. CALL LIGHT IS WITH IN REACH. WILL ENDORSE CARE TO DAY SHIFT.
[2020-02-20 07:57] LABS: HEMATOCRIT 52 % (39-51); HEMOGLOBIN 17.7 g/dL (13.5-17.5); MEAN CORPUSCULAR HGB CONC 34 g/dl (31.0-36.0); MEAN CORPUSCULAR VOLUME 94 fL (80-96); RED BLOOD CELL COUNT(AUTO) 5.48 MIL/uL (4.5-6.0); WHITE BLOOD COUNT (AUTO) 3.4 K/uL (4.3-11.0)
[2020-02-20 08:00] VITALS: BP 117/70
--- NOTE | 2020-02-20 08:00 | NUR ---
RN NOTES RECEIVED PATIENT IN BED SLEEPING. NO SIGNS OF SOB OR RESPIRATORY DISTRESS NOTED. PATIENT IN NO SIGNS OF DISTRESS. TELE READING SR. PATIENT HAS IV ACCESS ON RIGHT HAND #22G SL INTACT FLUSHING WELL. SAFETY MEASURES ARE IN PLACE, BED IS LOCKED AND PLACED IN THE LOW POSITION, SIDE RAILS UP X 2. CALL LIGHT IS WITH IN REACH.
[2020-02-20 08:52] LABS: CALCIUM, SERUM 8.3 mg/dL (8.5-10.1); CREATININE 1.1 mg/dL (0.6-1.3); MAGNESIUM 2.7 mg/dL (1.8-2.4); PHOSPHORUS 4.1 mg/dL (2.5-4.9); POTASSIUM 3.9 mmol/L (3.5-5.1)
[2020-02-20 10:14] LABS: LYMPHOCYTES % (MANUAL) 23 % (16-48); MONOCYTES % (MANUAL) 8 % (0-11.0); NEUTROPHILS % (MANUAL) 68 (42-76); REACTIVE LYMPHOCYTES 1 % (0-0)
[2020-02-20 10:48] LABS: PLATELET COUNT (AUTO) 174 /CMM (150-450)
--- NOTE | 2020-02-20 10:51 | NUR ---
call from lab, mohan pcr (+), jovani davis informed
--- NOTE | 2020-02-20 11:00 | NUR ---
DR MONTES CAME AND MADE AWARE OF PT'S COVID PCR POSITIVE RESULT AND NOTIFIED DR MONTES 2X FOR THE MED RECONCILIATION NEEDING TO BE DONE.
[2020-02-20] MEDS: PANTOPRAZOLE 40 MG TABLET.DR PO SCH (11:03)
[2020-02-20] MEDS: DEXAMETHASONE SOD PHOSPHATE 10 MG/ML VIAL IV SCH (11:03)
[2020-02-20] MEDS: ENOXAPARIN SODIUM 40 MG/0.4 ML DISP.SYRIN SQ SCH (11:04)
[2020-02-20 12:00] VITALS: BP 123/77
--- NOTE | 2020-02-20 16:27 | NUR ---
PT O2 SAT RANGES FROM 88-93% AT 8L O2 NC.ENCOURAGED TO BE IN PRONE POSITION TOLERATED AND DO DEEP BREATHING EXERCISES.PT VERBALIZED UNDERSTANDING OF INSTRUCTIONS GIVEN AND WAS COMPLIANT. DR LOPEZ AND PHARMACIST,KRISTIE KHALIL .WILL MONITOR
--- NOTE | 2020-02-20 16:48 | NUR ---
Patient is alert and pleasant, lives locally with his family. 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 Prior to admission, was physically active and independent with adl's. Family involved and supportive.His pcp is Dr. Alcocer [phone]. He plan to return home once discharge. Addendum: 02/20/20 at 1648 by ABIGAIL LOBO RN Amended: Links added.
[2020-02-20] MEDS: CEFTRIAXONE 1 G in IV D5W 50 ML IV SCH (16:55)
[2020-02-20] MEDS ORDERED: REMDESIVIR (CHARGED) 200 MG, *LOADING DOSE 1 EA in IV NS 0.9% 210 ML IV ONE (17:00)
--- NOTE | 2020-02-20 18:03 | NUR ---
PT'S O2 SAT WAS 96% ON O2 AT 8L/MIN VIA NC WHILE SLEEPING.TITRATED PT'S O2 TO 4L/MIN VIA NC AND O2 SAT WAS 92-93% WHILE SLEEPING WITH HEART RATE OF 60-63.PT WAS LAYING ON HIS LEFT SIDE.
--- NOTE | 2020-02-20 18:08 | NUR ---
RN NOTES PATIENT IN BED AWAKE ALERT AND ORIENTED X 4 NO SIGNS OF SOB OR RESPIRATORY DISTRESS NOTED. PATIENT IN NO SIGNS OF DISTRESS. TELE READING SR. PATIENT HAS IV ACCESS ON RIGHT HAND #22G SL INTACT FLUSHING WELL. SAFETY MEASURES ARE IN PLACE, BED IS LOCKED AND PLACED IN THE LOW POSITION, SIDE RAILS UP X 2. CALL LIGHT IS WITH IN REACH. WILL ENDORSE CARE TO NEXT SHIFT NURSE
--- NOTE | 2020-02-20 19:30 | NUR ---
WHEN THE PT IS AWAKE WHILE SITTING IN BED,PT'S O2 SAT IS BETWEEN 90-91% ON O2 AT 4L/MIN VIA NC.DENIES SOB .PT IS JUST ANXIOUS WHY HIS O2 SAT IS DESATURATING WHEN HE IS JUST ACTUALLY RESTING.WILL CONTINUE TO MONITOR.AWAITING FOR [facility] FOR TRANSFUSION.
[2020-02-20] MEDS: ZITHROMAX 500 MG/250 ML D5W IV SCH ×2 (19:34)
--- NOTE | 2020-02-20 19:47 | NUR ---
PT IS FOR [facility] TRANSFUSION WITH CONSENTS SIGNED AND FAXED TO THE LAB. [facility],OF BLOOD BANK CALLED SAYING THAT THEY WILL THAW IT NOW AND IT WILL READY SOON AND WILL CALL OUR UNIT WHEN READY TO PICKED UP.WILL ENDORSE TO NIGHT NURSE FOR TRANSFUSION.
[2020-02-20 20:50] VITALS: BP 92/53
[2020-02-20 21:00] VITALS: BP 90/53
--- NOTE | 2020-02-20 21:00 | NUR ---
OPTICAL MANAGER NOTES RECEIVED REPORT FROM JOSEFA,PATIENT ON BED SLEEPING,AROUSABLE TO VERBAL STIMULI,BREATHING REGULAR,NOT IN ANY FORM OF DISTRESS,O2 IN USED AT 4L/NC,O2 SAT 93%.SALINE LOCK RIGHT HAND INTACT AND PATENT.AMBULATE WITH STEADY GAIT.CALL LIGHT IN REACH,NEEDS ANTICIPATED.
[2020-02-21] VITALS (8 sets, daily range): BP systolic 96–128; BP diastolic 46–80
[2020-02-21 00:04] LABS: C-REACTIVE PROTEIN 15.2 mg/dL (0.0-0.9)
--- NOTE | 2020-02-21 00:25 | NUR ---
RESIDENTIAL DESIGNER NOTES [facility]AS[facility] TRANSFUSION STARTED THIS TIME,209ML INFUSING VIA IV PUMP.VITAL SIGNS WITH IN NORMAL LIMITS
--- NOTE | 2020-02-21 03:00 | NUR ---
NATURAL RESOURCES INSTRUCTOR NOTES [facility]AS[facility] TRANSFUSION COMPLETED,TOLERATED WELL,NO ADVERSE REACTION NOTED.
[2020-02-21 06:42] LABS: BASOPHILS % (AUTO) 0.1 % (0.0-2.0); HEMATOCRIT 49 % (39-51); HEMOGLOBIN 17.1 g/dL (13.5-17.5); LYMPHOCYTES # (AUTO) 0.6 /CMM (0.8-4.8); LYMPHOCYTES % (AUTO) 7.1 % (20.0-44.0); MEAN CORPUSCULAR HGB CONC 35 g/dl (31.0-36.0); MEAN CORPUSCULAR VOLUME 93 fL (80-96); MONOCYTES # (AUTO) 0.9 /CMM (0.1-1.30); MONOCYTES % (AUTO) 11.3 % (2.0-12.0); NEUTROPHILS # (AUTO) 6.4 /CMM (1.8-8.9); NEUTROPHILS % (AUTO) 81.5 % (43.0-81.0); PLATELET COUNT (AUTO) 188 /CMM (150-450); RED BLOOD CELL COUNT(AUTO) 5.27 MIL/uL (4.5-6.0); WHITE BLOOD COUNT (AUTO) 7.8 K/uL (4.3-11.0)
--- NOTE | 2020-02-21 06:44 | NUR ---
STOCKROOM COORDINATOR NOTES FAIRLY RESTED AT NIGHT,NO SOB,O2 IN USED ON AND OFF,LATEST O2 SAT 96%.SALINE LOCK REMAINS PATENT ON LEFT HAND.IN NO ACUTE DISTRESS.WILL ENDORSE TO DAY NURSE FOR WILBUR.
--- NOTE | 2020-02-21 07:53 | NUR ---
RN NOTES PATIENT IN BED AWAKE ALERT AND ORIENTED X 4 NO SIGNS OF SOB OR RESPIRATORY DISTRESS NOTED. PATIENT REPORTS NO PAIN AT THIS TIME. TELE READING SR. PATIENT HAS IV ACCESS ON RIGHT HAND #22G SL INTACT FLUSHING WELL. SAFETY MEASURES ARE IN PLACE, BED IS LOCKED AND PLACED IN THE LOW POSITION, SIDE RAILS UP X 2. CALL LIGHT IS WITHIN REACH. WILL CONTINUE TO MONITOR
[2020-02-21 08:20] LABS: ALBUMIN 2.5 g/dL (3.4-5.0); BILIRUBIN,DIRECT 0.3 mg/dL (0.0-0.2); BILIRUBIN,TOTAL 0.6 mg/dL (0.2-1.0); CALCIUM, SERUM 8.2 mg/dL (8.5-10.1); CREATININE 1.1 mg/dL (0.6-1.3); POTASSIUM 3.7 mmol/L (3.5-5.1); TOTAL PROTEIN, SERUM 7.1 g/dL (6.4-8.2)
[2020-02-21] MEDS: AMLODIPINE BESYLATE 10 MG TABLET PO SCH (09:00)
[2020-02-21] MEDS: BENAZEPRIL HCL 10 MG TABLET PO SCH (09:00)
[2020-02-21] MEDS: DEXAMETHASONE SOD PHOSPHATE 10 MG/ML VIAL IV SCH (09:23)
[2020-02-21] MEDS: ENOXAPARIN SODIUM 40 MG/0.4 ML DISP.SYRIN SQ SCH (09:24)
[2020-02-21] MEDS: PANTOPRAZOLE 40 MG TABLET.DR PO SCH (09:26)
[2020-02-21] MEDS: REMDESIVIR (CHARGED) 100 MG in IV NS 0.9% 230 ML IV SCH (16:06)
[2020-02-21] MEDS: CEFTRIAXONE 1 G in IV D5W 50 ML IV SCH (16:52)
[2020-02-21] MEDS: ZITHROMAX 500 MG/250 ML D5W IV SCH ×2 (17:24)
--- NOTE | 2020-02-21 18:57 | NUR ---
PT RESTING IN BED LISTENING TO SWEET MUSIC ON HIS IPAD.WITH NO SOB NOTED.ON O2 AT 5-6L MIN VIA NC WITH O2 SAT 90-91%.DENIES SOB.CALL LIGHT PLACED WITHIN REACH.
--- NOTE | 2020-02-21 19:05 | NUR ---
ON REMDESIVIR 1 BAG,ZITHROMAX AND ROCEPHIN THERAPY.WITH NO A/R NOTED. NO C/O NAUSEA ,NO PAIN,BLEEDING,SWELLING OR SORENESS ON THE IV SITE.
--- NOTE | 2020-02-21 19:10 | NUR ---
RN NOTES: RECEIVED AWAKE ON BED, A/0X4, ABLE TO MAKE NEEDS KNOWN, ORIENTED T UNIT AND STAFF, ON O2 AT 4-5L/MIN VIA NC SPO2-88%, FLUCTUATING IN BETWEEN BUT IT GOES UP WHEN PATIENT IS AT REST OR SLEEPING IT GOES UP 90-91% PER ENDORSEMENT ABLE TO AMBULATE GOING TO THE BATHROOM, HL ON THE RH-G#22 PATENT.FALL,SAFETY AND ASPIRATION PRECAUTION OBSERVED,
--- NOTE | 2020-02-21 22:56 | NUR ---
RN NOTES: ABLE TO SLEEP AND REST AT SHORT INTERVALS, HE IS AWAKE RIGHT NOW,CHECKING HIS PHONE AND HIS SPO2 FLUCTUATE TO 87-88%, NO SOB, NON LABORED BREATHING, EXPLAINED TO HIM HE CAN TAKE A REST AND SLEEP SO THAT HE WILL RECUPERATE FAST AND HIS SPO2 INCREASE WHEN HE IS RESTING, KEPT BED IN SEMI FOWLERS POSITION.
--- NOTE | 2020-02-21 23:10 | NUR ---
RN NOTES: PATIENT ENCOURAGE TO LIE ON THE SIDE LYING POSITION HIS SPO2 INCREASED TO 88-89%.HE LOOKS COMFORTABLE.
[2020-02-22] VITALS (7 sets, daily range): BP systolic 94–114; BP diastolic 49–73
--- NOTE | 2020-02-22 04:57 | NUR ---
RN NOTES: WENT TO BATHROOM ONCE, ABLE TO AMBULATE, ACTIVITY TOLERATED, SPO2-88%, ENCOURAGE TO SLEEP IN SIDE LYING POSITION, SPO2 RANGE 89-90%.ON CLOSE WATCH.
--- NOTE | 2020-02-22 06:55 | NUR ---
RN NOTES: AWAKE , LISTENING TO HIS MUSIC, LOOKS COMFORTABLE, NO SOB, KEPT MONITORED,ENDORSED FOR CONTINUITY OF CARE. LATEST SPO2-88% WITH O2 AT 6L/MIN.
--- NOTE | 2020-02-22 08:00 | NUR ---
RN NOTES PATIENT IN BED AWAKE ALERT AND ORIENTED X 4 NO SIGNS OF SOB OR RESPIRATORY DISTRESS NOTED. PATIENT IS ON 8 L OF OXYGEN VIA NASAL CANULA O2 SAT 90% PATIENT REPORTS NO PAIN AT THIS TIME. PATIENT HAS IV ACCESS ON RIGHT HAND #22G SL INTACT FLUSHING WELL. SAFETY MEASURES ARE IN PLACE, BED IS LOCKED AND PLACED IN THE LOW POSITION, SIDE RAILS UP X 2. CALL LIGHT IS WITHIN REACH. WILL CONTINUE TO MONITOR
[2020-02-22 08:26] LABS: ALBUMIN 2.4 g/dL (3.4-5.0); BILIRUBIN,DIRECT 0.2 mg/dL (0.0-0.2); BILIRUBIN,TOTAL 0.7 mg/dL (0.2-1.0); CALCIUM, SERUM 7.8 mg/dL (8.5-10.1); POTASSIUM 3.8 mmol/L (3.5-5.1); TOTAL PROTEIN, SERUM 6.8 g/dL (6.4-8.2)
[2020-02-22 08:34] LABS: BASOPHILS % (AUTO) 0.2 % (0.0-2.0); HEMATOCRIT 50 % (39-51); HEMOGLOBIN 16.9 g/dL (13.5-17.5); LYMPHOCYTES # (AUTO) 0.5 /CMM (0.8-4.8); LYMPHOCYTES % (AUTO) 5.2 % (20.0-44.0); MEAN CORPUSCULAR HGB CONC 34 g/dl (31.0-36.0); MEAN CORPUSCULAR VOLUME 95 fL (80-96); MONOCYTES # (AUTO) 0.9 /CMM (0.1-1.30); MONOCYTES % (AUTO) 9.7 % (2.0-12.0); NEUTROPHILS # (AUTO) 7.5 /CMM (1.8-8.9); NEUTROPHILS % (AUTO) 84.9 % (43.0-81.0); PLATELET COUNT (AUTO) 234 /CMM (150-450); RED BLOOD CELL COUNT(AUTO) 5.25 MIL/uL (4.5-6.0); WHITE BLOOD COUNT (AUTO) 8.8 K/uL (4.3-11.0)
[2020-02-22] MEDS: PANTOPRAZOLE 40 MG TABLET.DR PO SCH (08:56)
[2020-02-22] MEDS: AMLODIPINE BESYLATE 10 MG TABLET PO SCH (08:57)
[2020-02-22] MEDS: BENAZEPRIL HCL 10 MG TABLET PO SCH (08:57)
[2020-02-22] MEDS: ENOXAPARIN SODIUM 40 MG/0.4 ML DISP.SYRIN SQ SCH (08:58)
[2020-02-22] MEDS: DEXAMETHASONE SOD PHOSPHATE 10 MG/ML VIAL IV SCH (08:59)
[2020-02-22] MEDS: CEFTRIAXONE 1 G in IV D5W 50 ML IV SCH (16:02)
[2020-02-22] MEDS: REMDESIVIR (CHARGED) 100 MG in IV NS 0.9% 230 ML IV SCH (17:55)
[2020-02-22] MEDS: AZITHROMYCIN 250 MG TABLET PO SCH (17:56)
--- NOTE | 2020-02-22 19:02 | NUR ---
RN NOTES PATIENT IN BED AWAKE ALERT AND ORIENTED X 4 NO SIGNS OF SOB OR RESPIRATORY DISTRESS NOTED. PATIENT IS ON 8 L OF OXYGEN VIA NASAL CANULA O2 SAT 90% PATIENT REPORTS NO PAIN AT THIS TIME. PATIENT HAS IV ACCESS ON RIGHT HAND #22G INTACT FLUSHING WELL. SAFETY MEASURES ARE IN PLACE, BED IS LOCKED AND PLACED IN THE LOW POSITION, SIDE RAILS UP X 2.PATIENT IN BED AWAKE ALERT AND ORIENTED X 4 NO SIGNS OF SOB OR RESPIRATORY DISTRESS NOTED. ON REMDESIVIR 1 BAG,ZITHROMAX AND ROCEPHIN THERAPY.WITH NO A/R NOTED. NO C/O NAUSEA ,NO PAIN,BLEEDING,SWELLING OR SORENESS ON THE IV SITE. CALL LIGHT WITHIN REACH. WILL ENDORSE CARE TO IN COMING NURSE.
--- NOTE | 2020-02-22 22:14 | NUR ---
MS2/TELE PATIENT WAS BROUGHT TYS[facility] BY THE [facility] VIA WHEELCHAIR, DAUGHTER WAS WAITING DOWNSTAIRS. PAPER WORKS GIVEN TO THE PATIENT, TELE BOX, IV ACCESS X2 WERE REMOVED. ALL BELONGINGS WERE GIVEN, PATIENT WAS IN STABLE CONDITION VITAL SIGNS, BP 114/72, HR 73, RR 18, TEMP 98.1, O2 SAT 95% 3L NASAL CANULA. Addendum: 02/22/20 at 0647 by OLY CALDWELL RN PLEASE DISREGARD ABOVE DOCUMENTATION, IT BELONGS TO ANOTHER PATIENT.
--- NOTE | 2020-02-22 23:28 | NUR ---
MS2/RN DURING INITIAL SHIFT ROUND, PATIENT WAS AWAKE, ALERT, ORIENTED, COMFORTABLE, NO C/O PAIN, NO DISTRESS NOTED, O2 AT 8L NASAL CANULA, O2 SAT 91-93%. AT AROUND 2200 RT CAME AND CHANGE NASAL CANULA TO SIMPLE MASK AT 10L O2. WILL MONITOR.
[2020-02-23] VITALS: BP 95/49
--- NOTE | 2020-02-23 02:26 | NUR ---
MS2/RN O2 SAT 89-90 ON 10L SIMPLE MASK, NON REBREATHER MASK AT 15L WAS APPLIED WITH O2 SAT 95-96%, WILL CONTINUE TO MONITOR.
[2020-02-23 04:00] VITALS: BP 116/68
[2020-02-23 06:08] LABS: BASOPHILS % (AUTO) 0.1 % (0.0-2.0); HEMATOCRIT 45 % (39-51); HEMOGLOBIN 15.2 g/dL (13.5-17.5); LYMPHOCYTES # (AUTO) 0.5 /CMM (0.8-4.8); LYMPHOCYTES % (AUTO) 6.2 % (20.0-44.0); MEAN CORPUSCULAR HGB CONC 34 g/dl (31.0-36.0); MEAN CORPUSCULAR VOLUME 94 fL (80-96); MONOCYTES # (AUTO) 0.9 /CMM (0.1-1.30); MONOCYTES % (AUTO) 11.2 % (2.0-12.0); NEUTROPHILS # (AUTO) 6.4 /CMM (1.8-8.9); NEUTROPHILS % (AUTO) 82.5 % (43.0-81.0); PLATELET COUNT (AUTO) 239 /CMM (150-450); RED BLOOD CELL COUNT(AUTO) 4.77 MIL/uL (4.5-6.0); WHITE BLOOD COUNT (AUTO) 7.8 K/uL (4.3-11.0)
[2020-02-23 06:23] LABS: ALBUMIN 2.1 g/dL (3.4-5.0); BILIRUBIN,DIRECT 0.2 mg/dL (0.0-0.2); BILIRUBIN,TOTAL 0.6 mg/dL (0.2-1.0); CALCIUM, SERUM 7.4 mg/dL (8.5-10.1); CREATININE 0.9 mg/dL (0.6-1.3); MAGNESIUM 2.5 mg/dL (1.8-2.4); PHOSPHORUS 3.8 mg/dL (2.5-4.9)
--- NOTE | 2020-02-23 06:27 | NUR ---
MS2/RN PATIENT IS SLEEPING, APPEAR COMFORTABLE, NO SIGNS OF DISTRESS NOTED, STILL ON NON REBREATHER MASK AT 15LPM WITH O2 SAT 97%, ALL NEEDS ATTENDED AT THIS TIME, WILL CONTINUE TO MONITOR.
--- NOTE | 2020-02-23 07:30 | NUR ---
TELE/RN OPENING NOTE Received patient resting in bed, A&O x 4. No complaints of pain/discomfort at this time. Breathing even and non-labored on 15 L oxygen via Non-rebreather mask, saturating at 94-97%. No respiratory or cardiac distress noted. On tele monitor, reading SB 59. IV access noted on R hand #22, patent and intact, and flushing well. Bed locked to its lowest position, side rails x 2 up, call light in hand. Will continue with current medical management.
[2020-02-23 08:00] VITALS: BP 92/59
[2020-02-23] MEDS: PANTOPRAZOLE 40 MG TABLET.DR PO SCH (08:17)
[2020-02-23] MEDS: DEXAMETHASONE SOD PHOSPHATE 10 MG/ML VIAL IV SCH (08:38)
[2020-02-23] MEDS: BENAZEPRIL HCL 10 MG TABLET PO SCH (08:49)
[2020-02-23] MEDS: AMLODIPINE BESYLATE 10 MG TABLET PO SCH (08:50)
[2020-02-23] MEDS: ENOXAPARIN SODIUM 40 MG/0.4 ML DISP.SYRIN SQ SCH (08:57)
[2020-02-23 12:00] VITALS: BP 109/52
--- NOTE | 2020-02-23 14:30 | NUR ---
TELE/RN NOTE Patient appears well and comfortable sitting on the chair and watching videos on his iPad. Patient saturating at 93-94% on 15 L nonrebreather mask, no SOB noted.
--- NOTE | 2020-02-23 14:47 | NUR ---
TELE/RN NOTE Dr. Ovalle ordered CXR today. Orders carried out, notified radiology of order.
[2020-02-23] MEDS: CEFTRIAXONE 1 G in IV D5W 50 ML IV SCH (15:25)
[2020-02-23 16:00] VITALS: BP 104/56
[2020-02-23] MEDS: AZITHROMYCIN 250 MG TABLET PO SCH (16:59)
[2020-02-23] MEDS: REMDESIVIR (CHARGED) 100 MG in IV NS 0.9% 230 ML IV SCH (17:00)
--- NOTE | 2020-02-23 17:30 | NUR ---
TELE/RN NOTE Patient's IV access on R hand #22 noted to be infiltrated and leaking, removed IV access with catheter intact. Placed clean dry dressing on top, and elevated extremity. Attempted IV insertion x 3, patient is hard stick. Notified , ordered midline access insertion. Per nursing distribution center supervisor, midline nurse will come at 2000.
--- NOTE | 2020-02-23 19:07 | NUR ---
TELE/RN CLOSING NOTE Patient in bed, A&O x 4. All needs met and attended to. Denies any pain/discomfort at this time. Breathing even and non-labored on 15 L oxygen via Non-rebreather mask, saturating at 94-97%. No respiratory or cardiac distress noted. On tele monitor, reading SR 61. No IV access noted, MD aware. Awaiting for midline access. Fall precautions maintained. Will endorse to shiftman nurse.
[2020-02-23 20:00] VITALS: BP 145/89
[2020-02-24] VITALS: BP 125/66
[2020-02-24 04:00] VITALS: BP 136/83
[2020-02-24 06:45] LABS: ALBUMIN 2.1 g/dL (3.4-5.0); BILIRUBIN,DIRECT 0.2 mg/dL (0.0-0.2); BILIRUBIN,TOTAL 0.6 mg/dL (0.2-1.0); CALCIUM, SERUM 7.7 mg/dL (8.5-10.1); CREATININE 0.8 mg/dL (0.6-1.3); MAGNESIUM 2.3 mg/dL (1.8-2.4); PHOSPHORUS 3.4 mg/dL (2.5-4.9); POTASSIUM 4.1 mmol/L (3.5-5.1); TOTAL PROTEIN, SERUM 5.9 g/dL (6.4-8.2)
[2020-02-24 06:46] LABS: BASOPHILS % (AUTO) 0.1 % (0.0-2.0); HEMATOCRIT 46 % (39-51); HEMOGLOBIN 15.6 g/dL (13.5-17.5); LYMPHOCYTES # (AUTO) 0.5 /CMM (0.8-4.8); LYMPHOCYTES % (AUTO) 5.2 % (20.0-44.0); MEAN CORPUSCULAR HGB CONC 34 g/dl (31.0-36.0); MEAN CORPUSCULAR VOLUME 95 fL (80-96); MONOCYTES # (AUTO) 1.1 /CMM (0.1-1.30); MONOCYTES % (AUTO) 11.8 % (2.0-12.0); NEUTROPHILS # (AUTO) 7.4 /CMM (1.8-8.9); NEUTROPHILS % (AUTO) 82.9 % (43.0-81.0); PLATELET COUNT (AUTO) 262 /CMM (150-450); RED BLOOD CELL COUNT(AUTO) 4.82 MIL/uL (4.5-6.0); WHITE BLOOD COUNT (AUTO) 8.9 K/uL (4.3-11.0)
--- NOTE | 2020-02-24 06:55 | NUR ---
TELE/RN CLOSING NOTE PT IN BED A/O X4 BREATHING EVEN AND NON LABORED ON 15 LITER NON REBREATHER. DENIES PAIN. ON TELE MONITOR READING SR. IV ACCESS PLACED ON LEFT WRIST #20 HEPLOCKED FLUSHED PATENT. PATIENT HAS MIDLINE PLACEMENT PENDINGS. WILL ENDORSE TO ONCOMING NURSE.
--- NOTE | 2020-02-24 07:28 | NUR ---
HEART COORDINATOR OPENING NOTES RECEIVED PATIENT IN BED, AWAKE, A/O X4. PATIENT ON NON-REBREATHER AT 15 LPM; IN NO ACUTE RESPIRATORY DISTRESS. NO COMPLAINS OF PAIN. L WRIST G # 22 IV ACCESS PRESENT AND INTACT. SAFETY PRECAUTIONS IN PLACE; BED IN LOW POSITION AND LOCKED, RAILS UP X2, CALL LIGHT WITHIN REACH. WILL CONTINUE TO MONITOR PATIENT.
[2020-02-24 08:00] VITALS: BP 100/55
[2020-02-24] MEDS: AMLODIPINE BESYLATE 10 MG TABLET PO SCH (08:03)
[2020-02-24] MEDS: BENAZEPRIL HCL 10 MG TABLET PO SCH (08:03)
[2020-02-24] MEDS: DEXAMETHASONE SOD PHOSPHATE 10 MG/ML VIAL IV SCH (08:16)
[2020-02-24] MEDS: PANTOPRAZOLE 40 MG TABLET.DR PO SCH (08:16)
[2020-02-24] MEDS: ENOXAPARIN SODIUM 40 MG/0.4 ML DISP.SYRIN SQ SCH (08:17)
[2020-02-24 12:00] VITALS: BP 116/67
[2020-02-24] MEDS: CEFTRIAXONE 1 G in IV D5W 50 ML IV SCH (15:43)
[2020-02-24 16:00] VITALS: BP 134/72
[2020-02-24] MEDS: AZITHROMYCIN 250 MG TABLET PO SCH (16:31)
[2020-02-24] MEDS: REMDESIVIR (CHARGED) 100 MG in IV NS 0.9% 230 ML IV SCH (17:38)
--- NOTE | 2020-02-24 18:48 | NUR ---
HOME HEALTH REGISTERED NURSE CLOSING NOTES PATIENT REMAINS IN BED, AWAKE, A/O X4. PATIENT ON NON-REBREATHER AT 15 LPM; IN NO ACUTE RESPIRATORY DISTRESS DURING THE DAY. NO COMPLAINS OF PAIN THROUGHOUT SHIFT. L WRIST G # 22 IV ACCESS AND PEDRITO MIDLINE PRESENT AND INTACT. ALL NEEDS ATTENDED THROUGHOUT THE DAY. SAFETY PRECAUTIONS IN PLACE; BED IN LOW POSITION AND LOCKED, RAILS UP X2, CALL LIGHT WITHIN REACH. WILL ENDORSE TO RAW STOCK DRIER TENDER NURSE.
--- NOTE | 2020-02-24 19:30 | NUR ---
CERTIFIED PATHOLOGY ASSISTANT OPENING NOTES RECEIVED PATIENT IN BED, ALERT AND ORIENTED X 4. VERBALLY RESPONSIVE AND ABLE TO FOLLOW DIRECTIONS. BREATHING REGULAR AND UNLABORED ON OXYGEN AT 15L/MIN VIA NON-REBREATHER MASK, LATEST SPO2 92%. LEFT UPPER ARM MIDLINE INTACT AND PATENT, FLUSHING WELL WITH NO BLEEDING OR S/S OF INFILTRATION NOTED. ON CARDIAC MONITORING WITH SINUS BRADYCARDIA AT 58bmp. DENIES PAIN/DISCOMFORT AT THIS TIME. BED LOW AND LOCKED ON SEMI FOWLERS POSITION. CALL LIGHT IN REACH. MAINTAINED ON ISOLATION FOR COVID19, PROPER HAND WASHING AND ISOLATION PRECAUTIONS OBSERVED. WILL CONTINUE TO MONITOR.
[2020-02-24 20:00] VITALS: BP 134/77
[2020-02-25] VITALS: BP 152/69
[2020-02-25 04:00] VITALS: BP 132/69
[2020-02-25] MEDS: PANTOPRAZOLE 40 MG TABLET.DR PO SCH (06:40)
--- NOTE | 2020-02-25 06:45 | NUR ---
EXAMINATION SUPERVISOR CLOSING NOTES PATIENT IN BED, ALERT AND ORIENTED X 4. AFEBRILE WITH NO S/S OF DISTRESS OBSERVED. LEFT UPPER ARM MIDLINE PATENT AND FLUSHING. MAINTAINED ON CARDIAC MONITORING WITH SINUS BRADYCARDIA AT 55bmp. NO COMPLAINTS OF PAIN/DISCOMFORT REPORTED AT THIS TIME. BED LOW AND LOCKED ON SEMI FOWLERS POSITION. CALL LIGHT IN REACH. WILL ENDORSE TO MORNING SHIFT FOR WILBUR.
--- NOTE | 2020-02-25 07:15 | NUR ---
RN NOTES RECEIVED PATIENT AWAKE AND ALERT ORIENTED X4. HOB ELEVATED. ON NON REBREATHER MASK AT 15L/MIN SERA WELL. ON TELE MONITORING SR: 58. DENIES ANY C/O PAIN NOR DISCOMFORT AT THIS TIME. BED IN LOWEST POSITION, LOCKED. ABLE TO VERBALIZE NEEDS. CALL LIGHT WITHIN REACH. FREQUENT VISUAL CHECK DONE.
[2020-02-25 07:30] LABS: BASOPHILS # (AUTO) 0.1 /CMM (0.0-0.2); EOSINOPHILS % (AUTO) 0.1 % (0.0-6.0); HEMATOCRIT 46 % (39-51); HEMOGLOBIN 15.8 g/dL (13.5-17.5); LYMPHOCYTES # (AUTO) 0.8 /CMM (0.8-4.8); LYMPHOCYTES % (AUTO) 7.8 % (20.0-44.0); MEAN CORPUSCULAR HGB CONC 34 g/dl (31.0-36.0); MEAN CORPUSCULAR VOLUME 95 fL (80-96); MONOCYTES # (AUTO) 0.8 /CMM (0.1-1.30); MONOCYTES % (AUTO) 7.8 % (2.0-12.0); NEUTROPHILS # (AUTO) 8.3 /CMM (1.8-8.9); NEUTROPHILS % (AUTO) 83.3 % (43.0-81.0); PLATELET COUNT (AUTO) 253 /CMM (150-450)
[2020-02-25 07:55] LABS: ALBUMIN 2.1 g/dL (3.4-5.0); BILIRUBIN,DIRECT 0.3 mg/dL (0.0-0.2); BILIRUBIN,TOTAL 0.9 mg/dL (0.2-1.0); CALCIUM, SERUM 7.6 mg/dL (8.5-10.1); CREATININE 0.8 mg/dL (0.6-1.3); POTASSIUM 3.8 mmol/L (3.5-5.1)
[2020-02-25 08:00] VITALS: BP 132/74
[2020-02-25] MEDS: BENAZEPRIL HCL 10 MG TABLET PO SCH (09:39)
[2020-02-25] MEDS: AMLODIPINE BESYLATE 10 MG TABLET PO SCH (09:39)
[2020-02-25] MEDS: ENOXAPARIN SODIUM 40 MG/0.4 ML DISP.SYRIN SQ SCH (09:40)
[2020-02-25] MEDS: DEXAMETHASONE SOD PHOSPHATE 10 MG/ML VIAL IV SCH (09:43)
[2020-02-25 12:00] VITALS: BP 121/66
[2020-02-25] MEDS ORDERED: DEXTROSE 50%-WATER 50 ML DISP.SYRIN IV PRN (12:00)
[2020-02-25] MEDS: INSULIN REGULAR, HUMAN 100 UNIT/ML 3 ML VIAL SQ PRN ×3 (12:52→22:15)
[2020-02-25] MEDS: IV NS 0.9% 1,000 ML IV SCH (12:53)
[2020-02-25] MEDS: BLOOD SUGAR DIAGNOSTIC 1 EACH STRIP IN SCH ×3 (12:53→22:05)
--- NOTE | 2020-02-25 15:00 | NUR ---
RN NOTES PATIENT SAT UP IN CHAIR SERA WELL.
[2020-02-25 16:00] VITALS: BP 123/77
[2020-02-25] MEDS: CEFTRIAXONE 1 G in IV D5W 50 ML IV SCH (16:33)
--- NOTE | 2020-02-25 19:15 | NUR ---
RN NOTES PATIENT RESTING COMFORTABLY IN BED. WITH ON AND OFF COUGH. NO S/S OF RESPIRATORY DISTRESS OBSERVED DURING THE SHIFT. TITRATED PATIENT TO 6L/MIN VIA NC SERA WELL WITH SPO2 OF 92-98%. HOB ELEVATED. REMAIN ON TELE MONITORING SR: 78. DENIES ANY C/O PAIN NOR DISCOMFORT AT THIS TIME. LEFT UPPER ARM MIDLINE AND LEFT HAND # 20 SL INTACT AND PATENT. BED IN LOWEST POSITION, LOCKED. ABLE TO VERBALIZE NEEDS. CALL LIGHT WITHIN REACH. IN NO APPARENT DISTRESS.
--- NOTE | 2020-02-25 19:40 | NUR ---
senior tax manager opening notes Received Pt from morning nurse. Pt is resting in bed comfortably. Pt is alert and orientedX4. Respiration on 6 L NC. No SOB. No S/S of distress noted. L upperarm midline is clean, intact and infusing well NS @ 80 ml/hr. Tele monitor showed SR Hr at 64. Safety precautions is maintained. Bed at low position, brakes locked, HOB elevated, urinal at the bed side, side rails upX2 and call light is within reach. Will continue to monitor.
[2020-02-25 20:00] VITALS: BP 107/64
[2020-02-26] VITALS: BP 120/74
[2020-02-26] MEDS: IV NS 0.9% 1,000 ML IV SCH (00:14)
[2020-02-26 04:00] VITALS: BP_SYST 110; BP_DIAS 60; BP_DIAS 61
[2020-02-26] MEDS: PANTOPRAZOLE 40 MG TABLET.DR PO SCH (06:39)
[2020-02-26] MEDS: BLOOD SUGAR DIAGNOSTIC 1 EACH STRIP IN SCH ×4 (06:47→22:21)
--- NOTE | 2020-02-26 07:00 | NUR ---
psych therapist closing notes Pt is resting in bed comfortably. Pt is alert and orientedX4. Respiration on 5 L NC. No SOB. No S/S of distress noted. L upperarm midline is clean, intact and infusing well NS @ 80 ml/hr. Tele monitor showed SR renny at 57. VS is stable. Afebrile. Routine meds were given as ordered. Kept Pt clean, dry and comfortable. All needs met and attended. Safety precautions is maintained. Bed at low position, brakes locked, HOB elevated, urinal at the bed side, side rails upX2 and call light is within reach. Will endorse to morning nurse for WILBUR.
--- NOTE | 2020-02-26 07:00 | NUR ---
hatch supervisor notes Pt's IV site at L hand# 20 is infiltrated. Removed IV sites on L hand. Pt tolerated activity well. Pt still has L upperarm midline infusing well.
[2020-02-26] MEDS: INSULIN REGULAR, HUMAN 100 UNIT/ML 3 ML VIAL SQ PRN ×4 (07:01→22:18)
--- NOTE | 2020-02-26 07:10 | NUR ---
RN NOTES RECEIVED PATIENT IB BED ASLEEP. HOB ELEVATED. ON 02 AT 5L/MIN SERA WELL. ON TELE MONITORING SR: 72 WITH PVC. DENIES ANY C/O PAIN NOR DISCOMFORT AT THIS TIME. LEFT UPPER MIDLINE INTACT AN PATENT. BED IN LOWEST POSITION, LOCKED. ABLE TO VERBALIZE NEEDS. CALL LIGHT WITHIN REACH. FREQUENT VISUAL CHECK DONE.
[2020-02-26 08:00] VITALS: BP 126/62
[2020-02-26 08:03] LABS: BASOPHILS % (AUTO) 0.3 % (0.0-2.0); EOSINOPHILS % (AUTO) 0.1 % (0.0-6.0); HEMATOCRIT 46 % (39-51); HEMOGLOBIN 15.7 g/dL (13.5-17.5); LYMPHOCYTES # (AUTO) 0.6 /CMM (0.8-4.8); LYMPHOCYTES % (AUTO) 6.5 % (20.0-44.0); MEAN CORPUSCULAR HGB CONC 34 g/dl (31.0-36.0); MEAN CORPUSCULAR VOLUME 95 fL (80-96); MONOCYTES # (AUTO) 0.9 /CMM (0.1-1.30); MONOCYTES % (AUTO) 8.9 % (2.0-12.0); NEUTROPHILS # (AUTO) 8.3 /CMM (1.8-8.9); NEUTROPHILS % (AUTO) 84.2 % (43.0-81.0); PLATELET COUNT (AUTO) 249 /CMM (150-450); WHITE BLOOD COUNT (AUTO) 9.8 K/uL (4.3-11.0)
[2020-02-26 08:28] LABS: CALCIUM, SERUM 7.9 mg/dL (8.5-10.1); CREATININE 0.8 mg/dL (0.6-1.3); MAGNESIUM 2.3 mg/dL (1.8-2.4); POTASSIUM 3.7 mmol/L (3.5-5.1)
[2020-02-26] MEDS: DEXAMETHASONE SOD PHOSPHATE 10 MG/ML VIAL IV SCH (09:59)
[2020-02-26] MEDS: BENAZEPRIL HCL 10 MG TABLET PO SCH (09:59)
[2020-02-26] MEDS: AMLODIPINE BESYLATE 10 MG TABLET PO SCH (09:59)
[2020-02-26] MEDS: ENOXAPARIN SODIUM 40 MG/0.4 ML DISP.SYRIN SQ SCH (10:15)
--- NOTE | 2020-02-26 10:42 | NUR ---
RN NOTES TITRATED PATIENT NOW AT 3L/MIN VIA NC WITH SPO2 OF 92-95%.
[2020-02-26 12:00] VITALS: BP 121/65
--- NOTE | 2020-02-26 15:30 | NUR ---
RN NOTES PATIENT CURRENTLY ON ROOM AIR WITH SPO2 90-92%.
[2020-02-26] MEDS: CEFTRIAXONE 1 G in IV D5W 50 ML IV SCH (16:53)
--- NOTE | 2020-02-26 19:00 | NUR ---
RENAL MEDICINE SPECIALIST OPENING NOTES RECEIVED PATIENT IN BED AWAKE ALERT AND ORIENTED X 4, RESPIRATIONS EVEN AND UNLABORED WITH EQUAL RISE AND FALL OF CHEST CURRENTLY ON ROOM O2 SAT 91-93%,LEFT UPPER ARM MIDLINE INTACT AND PATENT, NO REDNESS NO INFILTRATION PRESENT, DSG IS C/D/I. URINAL AT BEDSIDE AND WITHIN REACH, OFFERED FLUIDS AND TOILETING, ON BUILDING RENTAL MANAGER SR 63, ORIENTED TO STAFF AND CALL LIGHT AND KEPT WITHIN REACH, ALL NEEDS ATTENDED AT THIS TIME, WILL CONTINUE TO MONITOR.
--- NOTE | 2020-02-26 19:50 | NUR ---
RN NOTES PATIENT RESTING COMFORTABLY SITTING UP IN CHAIR AT BEDSIDE. NO S/S OF RESPIRATORY DISTRESS OBSERVED DURING THE SHIFT. TITRATED PATIENT TO 3L/MIN VIA NC SERA WELL WITH SPO2 OF 92-94%. NOW ON ROOM AIR WITH SPO2 OF 92-94% HOB ELEVATED. DENIES ANY C/O PAIN NOR DISCOMFORT AT THIS TIME. LEFT UPPER ARM MIDLINE INTACT AND PATENT. BED IN LOWEST POSITION, LOCKED. ABLE TO VERBALIZE NEEDS. CALL LIGHT WITHIN REACH. IN NO APPARENT DISTRESS.
[2020-02-26 20:00] VITALS: BP 130/75
[2020-02-27] VITALS: BP 132/62
[2020-02-27 04:00] VITALS: BP 119/64
[2020-02-27] MEDS: INSULIN REGULAR, HUMAN 100 UNIT/ML 3 ML VIAL SQ PRN ×4 (06:14→21:28)
[2020-02-27] MEDS: BLOOD SUGAR DIAGNOSTIC 1 EACH STRIP IN SCH ×4 (06:15→21:27)
--- NOTE | 2020-02-27 06:49 | NUR ---
COMMODITY LEAD CLOSING NOTES PATIENT SITTING UP IN CHAIR EATING SOUP, AWAKE ALERT AND ORIENTED X 4, RESPIRATIONS EVEN AND UNLABORED WITH EQUAL RISE AND FALL OF CHEST CURRENTLY ON ROOM O2 SAT 91-93%,LEFT UPPER ARM MIDLINE INTACT AND PATENT, NO REDNESS NO INFILTRATION PRESENT, DSG IS C/D/I. URINAL AT BEDSIDE OUTPUT IS 600 AND VOIDED X 2, HAD 1 BM. URINAL REMAINS WITHIN REACH, OFFERED FLUIDS AND TOILETING, ON AREA INTELLIGENCE TECHNICIAN SR 60, CALL LIGHT KEPT WITHIN REACH, ALL NEEDS ATTENDED AT THIS TIME, WILL CONTINUE TO MONITOR AND ENDORSE TO NEXT SHIFT.
[2020-02-27 07:01] LABS: BASOPHILS % (AUTO) 0.3 % (0.0-2.0); EOSINOPHILS % (AUTO) 0.2 % (0.0-6.0); HEMATOCRIT 51 % (39-51); LYMPHOCYTES # (AUTO) 0.8 /CMM (0.8-4.8); LYMPHOCYTES % (AUTO) 9.3 % (20.0-44.0); MEAN CORPUSCULAR HGB CONC 34 g/dl (31.0-36.0); MEAN CORPUSCULAR VOLUME 95 fL (80-96); MONOCYTES # (AUTO) 0.9 /CMM (0.1-1.30); MONOCYTES % (AUTO) 9.9 % (2.0-12.0); NEUTROPHILS % (AUTO) 80.3 % (43.0-81.0); PLATELET COUNT (AUTO) 290 /CMM (150-450); WHITE BLOOD COUNT (AUTO) 8.7 K/uL (4.3-11.0)
[2020-02-27 07:03] LABS: CALCIUM, SERUM 8.4 mg/dL (8.5-10.1); CREATININE 0.8 mg/dL (0.6-1.3); POTASSIUM 3.7 mmol/L (3.5-5.1)
[2020-02-27] MEDS: PANTOPRAZOLE 40 MG TABLET.DR PO SCH (07:59)
--- NOTE | 2020-02-27 08:00 | NUR ---
RN Opening note Received patient in bed, AO x 4 able to responds all stimuli, Pt does no appears pain or distress. Skin is warm to touch keep clean/dry intact IV site, Patient removed oxygen but respiratory even and unlabored with room air. Kept locked bed with elevated HOB for aspiration precaution and ensure airway and lowest bed foe safety. Call light within reach, will continue to monitor.
[2020-02-27] MEDS: DEXAMETHASONE SOD PHOSPHATE 10 MG/ML VIAL IV SCH (08:37)
[2020-02-27] MEDS: AMLODIPINE BESYLATE 10 MG TABLET PO SCH (08:38)
[2020-02-27] MEDS: ENOXAPARIN SODIUM 40 MG/0.4 ML DISP.SYRIN SQ SCH (08:39)
[2020-02-27] MEDS: BENAZEPRIL HCL 10 MG TABLET PO SCH (08:40)
[2020-02-27 12:00] VITALS: BP 117/70
[2020-02-27 16:00] VITALS: BP 105/63
--- NOTE | 2020-02-27 17:00 | NUR ---
Patient noticed BS 432mg/Ld due to started eating own food before check blood sugar, given 10 units of insuline as sliding scale and informed MD. Will continue to monitor.
--- NOTE | 2020-02-27 18:11 | NUR ---
RN Closing note Patient in bed finished meal, does no appears pain or discomfort. Respiratory even and unlabored with oxygen at 4LPM and O2sat 97%. Skin is warm to touch keep clean/dry, intact IV site. Kept locked bed with elevated HOB for ensure airway and aspiration precaution and lowest bed for safety. Call, light within reach will endorse warehouse worker 2nd shift.
--- NOTE | 2020-02-27 19:30 | NUR ---
COMMERCIAL LINES ASSISTANT NOTES RECEIVED REPORT FROM ONUR DURON; PATIENT AWAKE, A/OX4, IN STABLE CONDITION; NO ACUTE DISTRESS NOTED AT THIS TIME; WILL CONT PLAN OF CARE
[2020-02-27 20:00] VITALS: BP 125/69
[2020-02-28] VITALS: BP 123/56
[2020-02-28 04:00] VITALS: BP 122/77
[2020-02-28] MEDS: BLOOD SUGAR DIAGNOSTIC 1 EACH STRIP IN SCH ×4 (06:56→22:21)
[2020-02-28] MEDS: INSULIN REGULAR, HUMAN 100 UNIT/ML 3 ML VIAL SQ PRN ×4 (06:58→22:23)
--- NOTE | 2020-02-28 07:15 | NUR ---
ASSEMBLER DRY CELL AND BATTERY CLOSING NOTES PATIENT RESTING IN BED COMFORTABLY; A/OX4, BREATHING EVENLY AND UNLABORED; NO SOB NOTED; TOLERATING 4LPM VIA NC WELL; NO DISTRESS NOTED; PATIENT DENIES PAIN; TELE MONITOR READS SINUS RHYTHM; L UA MIDLINE INTACT AND PATENT; ISOLATION PRECAUTIONS MAINTAINED; PATIENT ABLE TO MAKE NEEDS KNOWN; ALL NEEDS RENDERED; SAFETY PRECAUTIONS IMPLEMENTED; WILL ENDORSE WIBLUR TO ONCOMING SHIFT
--- NOTE | 2020-02-28 07:45 | NUR ---
TELE/RN OPENING NOTE THE PATIENT IS RECEIVED IN BED. ALERT AND ORIENTED X4. RECEIVING OXYGEN AT 4L/MIN VIA NASAL CANNULA AND SATURATION IS AT 94%. DENIES SOB. DENIES PAIN. PEDRITO MIDLINE PATENT AND SALINE LOCKED. TELE BOX READING IS SINUS RHYTHM 60 WITH PVC. BED LOW AND LOCKED. SIDE RAILS UP X2. CALL LIGHT WITHIN REACH. WILL CONTINUE TO MONITOR.
[2020-02-28 08:00] VITALS: BP 152/70
[2020-02-28] MEDS: DEXAMETHASONE SOD PHOSPHATE 10 MG/ML VIAL IV SCH (08:39)
[2020-02-28] MEDS: BENAZEPRIL HCL 10 MG TABLET PO SCH (08:39)
[2020-02-28] MEDS: AMLODIPINE BESYLATE 10 MG TABLET PO SCH (08:39)
[2020-02-28] MEDS: PANTOPRAZOLE 40 MG TABLET.DR PO SCH (08:39)
[2020-02-28] MEDS: ENOXAPARIN SODIUM 40 MG/0.4 ML DISP.SYRIN SQ SCH (08:57)
[2020-02-28 12:00] VITALS: BP 118/69
[2020-02-28] MEDS: CEFTRIAXONE 1 G in IV D5W 50 ML IV SCH (14:53)
[2020-02-28] MEDS: DOXYCYCLINE HYCLATE (100 MG) 100 MG TABLET PO SCH ×2 (14:53→22:18)
[2020-02-28 16:00] VITALS: BP 104/56
--- NOTE | 2020-02-28 18:33 | NUR ---
TELE/RN BLOOD SUGAR 1724 BLOOD SUGAR 433, REJECTED PER POLICY AND RECHECKED 1757 AND IT WAS 426 FOR WICH GAVE 10 UNITS REGULAR INSULIN AND INFORMED NILA DORSEY. PER NILA DORSEY NO NEW ORDERS. AT 1827 BLOOD SUGAR 373 AND NILA DORSEY IS AWARE AGAIN AND PER MINE GEOLOGIST NO NEW ORDERS AND NO NEED TO RECHECK AGAIN.
--- NOTE | 2020-02-28 18:35 | NUR ---
TELE/RN CLOSING NOTE THE PATIENT IS ALERT AND ORIENTED X4. RECEIVING OXYGEN AT 3L/MIN VIA NASAL CANNULA AND SATURATION IS AT 94%. DENIES SOB AT THIS TIME. RESPIRATION REGULAR AND UNLABORED. DENIES PAIN. PEDRITO MIDLINE PATENT AND SALINE LOCKED. BED LOW AND LOCKED. SIDE RAILS UP X3. CALL LIGHT WITHIN REACH. WILL ENDORSE TO FINISHING SUPERVISOR. Addendum: 02/28/20 at 1837 by KAYLAH RODARTE RN TELE/RN NOTE TELE BOX READING IS SINUS BRADYCARDIA.
--- NOTE | 2020-02-28 19:30 | NUR ---
MS2/RN RECEIVED PATIENT IN BED AWAKE, ALERT, ORIENTED, COMFORTABLE, NO C/O PAIN, NO DISTRESS NOTED, CALL LIGHT IN REACH. WILL CONTINUE TO MONITOR.
[2020-02-28 20:00] VITALS: BP 106/65
[2020-02-29] MEDS: BLOOD SUGAR DIAGNOSTIC 1 EACH STRIP IN SCH ×4 (06:32→22:04)
[2020-02-29] MEDS: INSULIN REGULAR, HUMAN 100 UNIT/ML 3 ML VIAL SQ PRN ×3 (06:35→17:42)
--- NOTE | 2020-02-29 07:15 | NUR ---
RN NOTES Patient Received. Patient is noted in bed, awake, alert and verbally responsive. Patient is verbally responsive and able to make needs known. Breathing is even and non labored and is currently receiving 3L via NC and is tolerating well. No acute distress noted or SOB noted. Patient is noted with an PEDRITO midline noted to be patent and intact. All needs attended to promptly. Will continue plan of care as ordered.
[2020-02-29 08:00] VITALS: BP 103/65
[2020-02-29 08:32] VITALS: BP 103/65
[2020-02-29] MEDS: DOXYCYCLINE HYCLATE (100 MG) 100 MG TABLET PO SCH ×2 (08:37→22:04)
[2020-02-29] MEDS: BENAZEPRIL HCL 10 MG TABLET PO SCH (08:37)
[2020-02-29] MEDS: PANTOPRAZOLE 40 MG TABLET.DR PO SCH (08:37)
[2020-02-29] MEDS: AMLODIPINE BESYLATE 10 MG TABLET PO SCH (08:37)
[2020-02-29] MEDS: ENOXAPARIN SODIUM 40 MG/0.4 ML DISP.SYRIN SQ SCH (08:39)
[2020-02-29] MEDS ORDERED: ALBU8.5H8 INH (09:03)
[2020-02-29] MEDS ORDERED: DOXY100C2 PO (09:03)
[2020-02-29 12:00] VITALS: BP 93/53
[2020-02-29] MEDS: CEFTRIAXONE 1 G in IV D5W 50 ML IV SCH (13:50)
[2020-02-29 16:00] VITALS: BP 111/62
--- NOTE | 2020-02-29 19:30 | NUR ---
RN NOTES Patient is noted in bed, awake, alert and verbally responsive. Breathing is even and non labored and continues on 3L via NC and is tolerating well. No acute distress noted or SOB. Patient is noted with PEDRITO midline and is noted intact and patent. Blood sugar checks rendered and insulin administered as per protocol. All medications administered as per orders. All needs attended to promptly. Will endorse to continue plan of care as ordered.
[2020-02-29 20:00] VITALS: BP 109/68
--- NOTE | 2020-02-29 20:00 | NUR ---
CERTIFIED PATHOLOGY ASSISTANT NOTES RECEIVED ON BED CALM AND QUIET,BREATHING NON LABORED,O2 IN USED AT 2-3L/NC O2 SAT 94%,DENIES PAIN DISCOMFORTS,ISOLATION FOR COVID 19 POSITIVE.CALL LIGHT IN REACH,NEEDS ANTICIPATED.
--- NOTE | 2020-02-29 20:00 | NUR ---
RAILROAD POLICE OFFICER NOTES ACCU-CHECK BLOOD SUGAR CHECK 77,NO INSULIN COVERAGE,ORANGE JUICE GIVEN.
[2020-03-01] VITALS: BP 104/63
[2020-03-01 04:00] VITALS: BP 99/58
--- NOTE | 2020-03-01 07:26 | NUR ---
ALIGNMENT TECHNICIAN NOTES O2 SAT 94% ON 3L/NC,NO SOB,AWAITING FOR O2 TANK FOR HOME USE POSSIBLY MONDAY.ENDORSED TO [facility]IDE [facility] FOR WILBUR.
--- NOTE | 2020-03-01 07:30 | NUR ---
TELE/RN OPENING NOTE Received patient resting in bed, A&O x 4, tagalog speaking. No complaints of pain/discomfort at this time. Breathing even and non-labored on 3 L via NC, saturating at 90-94%. No respiratory or cardiac distress noted. Midline access noted at PEDRITO, patent and intact, and flushing well. Bed locked to its lowest position, side rails x 2 up, call light in hand. Will continue with current medical management. Addendum: 03/01/20 at 0802 by EDDIE RUSS RN On tele monitor, reading SR 71
[2020-03-01 08:00] VITALS: BP_SYST 114; BP_SYST 95; BP_DIAS 58; BP_DIAS 69
[2020-03-01] MEDS: AMLODIPINE BESYLATE 10 MG TABLET PO SCH (08:47)
[2020-03-01] MEDS: BENAZEPRIL HCL 10 MG TABLET PO SCH (08:47)
[2020-03-01] MEDS: PANTOPRAZOLE 40 MG TABLET.DR PO SCH (08:51)
[2020-03-01] MEDS: DOXYCYCLINE HYCLATE (100 MG) 100 MG TABLET PO SCH ×2 (08:52→21:23)
[2020-03-01] MEDS: ENOXAPARIN SODIUM 40 MG/0.4 ML DISP.SYRIN SQ SCH (08:54)
[2020-03-01] MEDS: BLOOD SUGAR DIAGNOSTIC 1 EACH STRIP IN SCH ×3 (11:47→21:42)
[2020-03-01] MEDS: INSULIN REGULAR, HUMAN 100 UNIT/ML 3 ML VIAL SQ PRN ×3 (11:50→21:47)
[2020-03-01 12:00] VITALS: BP 114/69
[2020-03-01] MEDS: CEFTRIAXONE 1 G in IV D5W 50 ML IV SCH (14:01)
--- NOTE | 2020-03-01 15:00 | NUR ---
TELE/RN NOTE Weaned off patient from oxygen, patient on room air saturating at 92-95%. No respiratory distress noted.
[2020-03-01 16:00] VITALS: BP 112/62
--- NOTE | 2020-03-01 19:08 | NUR ---
TELE/RN CLOSING NOTE Patient resting in bed, A&O x 4. All needs met and attended to. No complaints of pain/discomfort at this time. Breathing even and non-labored on RA, saturating at 92%. No respiratory or cardiac distress noted. Midline access noted at PEDRITO, patent and intact, and flushing well. Fall precautions maintained. Will endorse to night club manager nurse.
--- NOTE | 2020-03-01 19:10 | NUR ---
TELE/RN OPENING NOTES: RECEIVED PT IN BED, AWAKE. A/OX4, VERBALLY RESPONSIVE AND ABLE TO MAKE NEEDS KNOWN. NO SOB NOTED. BREATHING EVN AND UNLABORED. ON ROOM AIR SATURATING AT 96%. NO C/O PAIN AT THIS TIME, NO S/S OF ACUTE DISTRESS. IV ACCESS ON THE PEDRITO MIDLINE. ON TELE MONITORING WITH READING OF SR. SKIN IS INTACT, WARM AND DRY. USES THE URINAL. SAFETY MEASURES ARE IN PLACE. BED IN LOW, LOCKED POSITION WITH SR UPX2. WILL CONTINUE TO MONITOR ACCORDINGLY.
[2020-03-01 20:00] VITALS: BP 95/55
--- NOTE | 2020-03-01 22:00 | NUR ---
TELE/RN NOTES: ACCUCHECK FOR 2199 IS 236. ADMINISTERED 4 UNITS OF REG. INSULIN PER SLIDING SCALE, NO S/S OF HYPOGLYCEMIA OR HYPERGLYCEMIA. PT IS STABLE WITH VS WNL. WILL CONTINUE TO MONITOR PT ACCORDINGLY.
[2020-03-02] VITALS (7 sets, daily range): BP systolic 91–127; BP diastolic 54–74
[2020-03-02] MEDS: BLOOD SUGAR DIAGNOSTIC 1 EACH STRIP IN SCH ×3 (06:37→18:01)
[2020-03-02] MEDS: INSULIN REGULAR, HUMAN 100 UNIT/ML 3 ML VIAL SQ PRN ×3 (06:38→18:04)
--- NOTE | 2020-03-02 07:15 | NUR ---
RN Notes Patient Received. Patient is in bed, awake, alert and oriented x4. Patient is verbally responsive. Breathing even and non labored. Patient is currently on room air with no signs of acute distress noted. No shortness of breath noted. Patient continues on tele monitoring noted to be NSR. Patient is noted with PEDRITO midline noted to be patent and intact. Skin is noted intact and warm. Patient ambulatory with standby assistance. Bed is locked and in lowest position. All needs attended to promptly. Will continue plan of care as ordered.
--- NOTE | 2020-03-02 07:39 | NUR ---
TELE/RN CLOSING NOTES: PT REMAINS IN BED, RESTING COMFORTABLY. A/OX4, VERBALLY RESPONSIVE AND ABLE TO MAKE NEEDS KNOWN. NO SOB NOTED. BREATHING EVEN AND UNLABORED. ON ROOM AIR SATURATING AT 94-95%. NO C/O PAIN AT THIS TIME, NO S/S OF ACUTE DISTRESS. IV ACCESS ON THE PEDRITO MIDLINE, SL. ON TELE MONITORING WITH READING OF SR. BS FOR AC IS 142, 2 UNITS REG. INSULIN ADMINISTERED PER SLIDING SCALE. SAFETY MEASURES ARE IN PLACE. BED IN LOW, LOCKED POSITION WITH SR UPX2. WILL ENDORSE TO DAY SHIFT FOR WILBUR.
[2020-03-02] MEDS: DOXYCYCLINE HYCLATE (100 MG) 100 MG TABLET PO SCH (08:41)
[2020-03-02] MEDS: PANTOPRAZOLE 40 MG TABLET.DR PO SCH (08:41)
[2020-03-02] MEDS: ENOXAPARIN SODIUM 40 MG/0.4 ML DISP.SYRIN SQ SCH (08:42)
[2020-03-02] MEDS: BENAZEPRIL HCL 10 MG TABLET PO SCH (08:43)
[2020-03-02] MEDS: AMLODIPINE BESYLATE 10 MG TABLET PO SCH (08:43)
[2020-03-02] MEDS: CEFTRIAXONE 1 G in IV D5W 50 ML IV SCH (14:22)
--- NOTE | 2020-03-02 15:00 | NUR ---
brass molder helper NOTES PATIENT ON ROOM AIR SATURATING 88-89% AT REST.
--- NOTE | 2020-03-02 19:35 | NUR ---
SHAREPOINT ARCHITECT NOTES PATIENT RECEIVED OXYGEN. PROVIDED TEACHING AND VERBALIZED UNDERSTANDING. PRESCRIPTION GIVEN TO PATIENT. DIABETIC TEACHING PROVIDED. VERBALIZED UNDERSTANDING. HOME HEALTH ARRANGED BY MARTINA LEGAL RECORDS MANAGER WITH [facility]. ALL BELONGING ACCOUNTED FOR BELONGING LIST SIGNED. CALLED [facility] FOR DIABETIC SUPPLIED PER PTS. REQUEST AND OK BY DR. MONTES. DISCHARGE EDUCATION PROVIDED TO PATIENTS DAUGHTER AND PATIENT. PATIENT WAITING FOR DAUGHTER FOR PIPE SMOKING MACHINE OPERATOR. ENDORSED DISCHARGE TO [facility] NIGHT SIFT.
--- NOTE | 2020-03-02 20:00 | NUR ---
patient escorted out via ambulation utilizing portable oxygen on 2lnc. pt assisted into private vehicle with dtr at entrance in no apparent distress with belongings and paperwork.
== END 2020-03-02 20:00 | disposition home health service (06) | DRG 177 ==
LOC: ER 10:03 → TELE2 13:54
PROVIDERS: ADMIT Legal Medicine; ATTEND Nurse Practitioner Acute Care
PROC: XW033E5 Introduction of Remdesivir Anti-infective into Peripheral Vein, Percutaneous Approach, New Technology Group 5 (ICD-10-PCS; principal; 2020-02-20)
PROC: XW13325 Transfusion of Convalescent Plasma (Nonautologous) into Peripheral Vein, Percutaneous Approach, New Technology Group 5 (ICD-10-PCS; 2020-02-20)
DX: U07.1 COVID-19 (principal); J12.89 Other viral pneumonia; J96.01 Acute respiratory failure with hypoxia; J18.9 Pneumonia, unspecified organism; E44.0 Moderate protein-calorie malnutrition; I10 Essential (primary) hypertension; D75.1 Secondary polycythemia; I70.0 Atherosclerosis of aorta; Z87.891 Personal history of nicotine dependence; Z79.899 Other long term (current) drug therapy; M19.90 Unspecified osteoarthritis, unspecified site
CPT/HCPCS: 36415; 36600; 71045-TC; 80048-TC; 80053-TC; 80076-TC; 82550-TC; 82728-TC; 82962-TC; 83605-TC; 83615-TC; 83735-TC; 83880; 84100-TC; 84484-TC; 85025-TC; 85378-TC; 85385-TC; 85610-TC; 85730-TC; 86140-TC; 86850-TC; 87040-TC; 87081-TC; A4216; G0378; J0456; J0696; J1100; J1650; J1815; J7030; J7040; J7050; J7060; P9017-BL; U0003

== ENCOUNTER 2020-06-01 10:36 | Outpatient (CLI) | payer BC, MEDICARE ==
[~2020-06-01 10:36] MED LIST changes: +ALBU8.5H8 INH; -AMOX-430 PO; +DOXY100C2 PO; -HYDR-4384 PO; -ONDA4TAB5 PO
== END 2020-06-01 23:59 | disposition home or self-care (01) ==
LOC: RAD 10:36
PROVIDERS: ATTEND Internal Medicine Pulmonary Disease
DX: U07.1 COVID-19 (principal); Q25.46 Tortuous aortic arch
CPT/HCPCS: 71046

== ENCOUNTER 2020-09-01 08:40 | Outpatient (CLI) | payer BC, MEDICARE ==
[2020-09-01 09:21] LABS: BILIRUBIN,URINE NEGATIVE (NEGATIVE); COLOR,URINE YELLOW (YELLOW); LEUKOCYTE ESTERASE ,URINE NEGATIVE (NEGATIVE); NITRITE, URINE NEGATIVE (NEGATIVE); PH,URINE 6.5 (5.0-8.0); PROTEIN,URINE NEGATIVE (NEGATIVE); UGLUCOSE NEGATIVE (NEGATIVE); UROBILINOGEN,URINE 0.2 EU/dL (0.2)
[2020-09-01 09:25] LABS: BASOPHILS # (AUTO) 0.1 K/uL (0.0-0.2); BASOPHILS % (AUTO) 1.2 % (0.0-2.0); EOSINOPHILS % (AUTO) 3.2 % (0.0-6.0); HEMATOCRIT 49 % (39-51); HEMOGLOBIN 16.7 g/dL (13.5-17.5); LYMPHOCYTES # (AUTO) 1.7 K/uL (0.8-4.8); LYMPHOCYTES % (AUTO) 29.5 % (20.0-44.0); MEAN CORPUSCULAR HGB CONC 34 g/dl (31.0-36.0); MEAN CORPUSCULAR VOLUME 95 fL (80-96); MONOCYTES # (AUTO) 0.5 K/uL (0.1-1.30); MONOCYTES % (AUTO) 8.6 % (2.0-12.0); NEUTROPHILS # (AUTO) 3.4 K/uL (1.8-8.9); NEUTROPHILS % (AUTO) 57.5 % (43.0-81.0); PLATELET COUNT (AUTO) 254 K/uL (150-450); RED BLOOD CELL COUNT(AUTO) 5.17 MIL/uL (4.5-6.0); WHITE BLOOD COUNT (AUTO) 5.9 K/uL (4.3-11.0)
[2020-09-01 09:50] LABS: PROSTATE SPECIFIC ANTIGEN SCR 0.58 ng/mL (0.00-4.00); THYROID STIMULATING HORMONE 1.178 uIU/mL (0.358-3.74); URIC ACID 5.3 mg/dL (2.6-7.2)
[2020-09-01 10:04] LABS: ALBUMIN 3.9 g/dL (3.4-5.0); BILIRUBIN,TOTAL 2.1 mg/dL (0.2-1.0); CALCIUM, SERUM 8.3 mg/dL (8.5-10.1); CREATININE 0.8 mg/dL (0.6-1.3); POTASSIUM 3.6 mmol/L (3.5-5.1); TOTAL PROTEIN, SERUM 7.6 g/dL (6.4-8.2)
== END 2020-09-01 23:59 | disposition home or self-care (01) ==
LOC: LAB 08:40
PROVIDERS: ATTEND Legal Medicine
DX: I12.9 Hypertensive chronic kidney disease with stage 1 through stage 4 chronic kidney disease, or unspecified chronic kidney disease (principal); E11.22 Type 2 diabetes mellitus with diabetic chronic kidney disease; N18.9 Chronic kidney disease, unspecified; D64.9 Anemia, unspecified; E03.9 Hypothyroidism, unspecified; E78.5 Hyperlipidemia, unspecified; E55.9 Vitamin D deficiency, unspecified; R53.1 Weakness; Z00.00 Encounter for general adult medical examination without abnormal findings
CPT/HCPCS: 36415; 80053-TC; 80061-TC; 82306; 82607-TC; 82728-TC; 83540-TC; 84153-TC; 84402; 84403; 84439-TC; 84443-TC; 84550-TC; 85025-TC; 85652-TC; 87086-TC

== ENCOUNTER 2020-11-25 13:41 | Outpatient (CLI) | payer BC, MEDICARE ==
[2020-11-25 14:44] LABS: CALCIUM, SERUM 8.4 mg/dL (8.5-10.1); POTASSIUM 3.7 mmol/L (3.5-5.1)
== END 2020-11-25 23:59 | disposition home or self-care (01) ==
LOC: LAB 13:41
PROVIDERS: ATTEND Legal Medicine
DX: E11.9 Type 2 diabetes mellitus without complications (principal)
CPT/HCPCS: 36415; 80048-TC

== ENCOUNTER 2021-03-24 09:49 | Outpatient (CLI) | payer BC, MEDICARE | END 2021-03-24 23:59 | disposition home or self-care (01) | LOC: MRI 09:49 | PROVIDERS: ATTEND Legal Medicine | DX: M47.817 Spondylosis without myelopathy or radiculopathy, lumbosacral region (principal); M51.27 Other intervertebral disc displacement, lumbosacral region; M48.061 Spinal stenosis, lumbar region without neurogenic claudication | CPT/HCPCS: 72148-TC ==

== ENCOUNTER 2021-03-30 08:22 | Outpatient (CLI) | payer BC, MEDICARE ==
[2021-03-30 09:34] LABS: BASOPHILS # (AUTO) 0.1 K/uL (0.0-0.2); EOSINOPHILS % (AUTO) 3.3 % (0.0-6.0); HEMATOCRIT 48 % (39-51); HEMOGLOBIN 16.6 g/dL (13.5-17.5); LYMPHOCYTES # (AUTO) 2.1 K/uL (0.8-4.8); LYMPHOCYTES % (AUTO) 31.6 % (20.0-44.0); MEAN CORPUSCULAR HGB CONC 34 g/dl (31.0-36.0); MEAN CORPUSCULAR VOLUME 96 fL (80-96); MONOCYTES # (AUTO) 0.6 K/uL (0.1-1.30); MONOCYTES % (AUTO) 9.4 % (2.0-12.0); NEUTROPHILS # (AUTO) 3.6 K/uL (1.8-8.9); NEUTROPHILS % (AUTO) 54.7 % (43.0-81.0); PLATELET COUNT (AUTO) 229 K/uL (150-450); WHITE BLOOD COUNT (AUTO) 6.7 K/uL (4.3-11.0)
[2021-03-30 10:07] LABS: BILIRUBIN,URINE NEGATIVE (NEGATIVE); COLOR,URINE YELLOW (YELLOW); LEUKOCYTE ESTERASE ,URINE NEGATIVE (NEGATIVE); NITRITE, URINE NEGATIVE (NEGATIVE); PH,URINE 7.5 (5.0-8.0); PROTEIN,URINE NEGATIVE (NEGATIVE); UGLUCOSE NEGATIVE (NEGATIVE); UROBILINOGEN,URINE 0.2 EU/dL (0.2)
[2021-03-30 10:20] LABS: FREE T4 (FREE THYROXINE) 1.15 ng/dL (0.76-1.46); PROSTATE SPECIFIC ANTIGEN SCR 0.88 ng/mL (0.00-4.00); THYROID STIMULATING HORMONE 1.739 uIU/mL (0.358-3.74)
[2021-03-30 10:34] LABS: ALBUMIN 4.2 g/dL (3.4-5.0); BILIRUBIN,TOTAL 1.9 mg/dL (0.2-1.0); CALCIUM, SERUM 8.8 mg/dL (8.5-10.1); CREATININE 0.9 mg/dL (0.6-1.3); POTASSIUM 3.5 mmol/L (3.5-5.1); TOTAL PROTEIN, SERUM 8.2 g/dL (6.4-8.2)
== END 2021-03-30 23:59 | disposition home or self-care (01) ==
LOC: LAB 08:22
PROVIDERS: ATTEND Legal Medicine
DX: E11.22 Type 2 diabetes mellitus with diabetic chronic kidney disease (principal); N18.9 Chronic kidney disease, unspecified; E78.5 Hyperlipidemia, unspecified; N40.0 Benign prostatic hyperplasia without lower urinary tract symptoms; E03.9 Hypothyroidism, unspecified; D64.9 Anemia, unspecified; E55.9 Vitamin D deficiency, unspecified; R53.1 Weakness; Z00.00 Encounter for general adult medical examination without abnormal findings
CPT/HCPCS: 36415; 80053-TC; 80061-TC; 82306; 82607-TC; 82728-TC; 83540-TC; 84153-TC; 84402; 84403; 84439-TC; 84443-TC; 84550-TC; 85025-TC

== ENCOUNTER 2022-08-03 08:22 | Outpatient (CLI) | payer BC, MEDICARE ==
[2022-08-03 08:59] LABS: BASOPHILS % (AUTO) 0.4 % (0.0-2.0); EOSINOPHILS % (AUTO) 2.4 % (0.0-6.0); HEMATOCRIT 49 % (39-51); HEMOGLOBIN 16.5 g/dL (13.5-17.5); LYMPHOCYTES # (AUTO) 1.8 K/uL (0.8-4.8); LYMPHOCYTES % (AUTO) 20.5 % (20.0-44.0); MEAN CORPUSCULAR HGB CONC 33 g/dl (31.0-36.0); MEAN CORPUSCULAR VOLUME 95 fL (80-96); MONOCYTES # (AUTO) 0.9 K/uL (0.1-1.30); MONOCYTES % (AUTO) 10.2 % (2.0-12.0); NEUTROPHILS # (AUTO) 5.9 K/uL (1.8-8.9); NEUTROPHILS % (AUTO) 66.5 % (43.0-81.0); PLATELET COUNT (AUTO) 231 K/uL (150-450); WHITE BLOOD COUNT (AUTO) 8.9 K/uL (4.3-11.0)
[2022-08-03 09:00] LABS: BILIRUBIN,URINE NEGATIVE (NEGATIVE); COLOR,URINE DARK YELLOW (YELLOW); LEUKOCYTE ESTERASE ,URINE NEGATIVE (NEGATIVE); NITRITE, URINE NEGATIVE (NEGATIVE); PH,URINE 7.5 (5.0-8.0); PROTEIN,URINE NEGATIVE (NEGATIVE); UGLUCOSE NEGATIVE (NEGATIVE); UROBILINOGEN,URINE 0.2 EU/dL (0.2)
[2022-08-03 09:39] LABS: PROSTATE SPECIFIC ANTIGEN SCR 0.69 ng/mL (0.00-4.00); THYROID STIMULATING HORMONE 1.628 uIU/mL (0.358-3.74); URIC ACID 5.4 mg/dL (2.6-7.2)
[2022-08-03 09:46] LABS: ALBUMIN 4.1 g/dL (3.4-5.0); BILIRUBIN,TOTAL 1.4 mg/dL (0.2-1.0); CALCIUM, SERUM 8.9 mg/dL (8.5-10.1); CREATININE 0.9 mg/dL (0.6-1.3); POTASSIUM 3.5 mmol/L (3.5-5.1); TOTAL PROTEIN, SERUM 8.1 g/dL (6.4-8.2)
== END 2022-08-03 23:59 | disposition home or self-care (01) ==
LOC: LAB 08:22
PROVIDERS: ATTEND Legal Medicine
DX: Z00.00 Encounter for general adult medical examination without abnormal findings (principal); E11.9 Type 2 diabetes mellitus without complications; E78.00 Pure hypercholesterolemia, unspecified; N40.0 Benign prostatic hyperplasia without lower urinary tract symptoms; E03.9 Hypothyroidism, unspecified; D64.9 Anemia, unspecified
CPT/HCPCS: 36415; 80053-TC; 80061-TC; 82306; 82607-TC; 82728-TC; 83540-TC; 84153-TC; 84402-TC; 84439-TC; 84443-TC; 84550-TC; 85025-TC

== ENCOUNTER 2023-01-13 09:23 | Emergency (ER) | payer BC, MEDICARE ==
[~2023-01-13] VITALS: Ht 172.7 cm; Wt 79.4 kg
[2023-01-13] MEDS ORDERED: CYCLOBENZAPRINE 10 MG TABLET PO ONE (10:00)
[2023-01-13] MEDS ORDERED: KETOROLAC TROMETHAMINE INJ 30 MG/ML VIAL IM ONE (10:00)
[2023-01-13] MEDS ORDERED: KETOROLAC TROMETHAMINE 15 MG/ML VIAL ONE (10:06)
[2023-01-13] MEDS ORDERED: CYCLOBENZAPRINE 10 MG TABLET ONE (10:07)
[2023-01-13] MEDS ORDERED: IBUP-1955 PO (10:57)
[2023-01-13] MEDS ORDERED: LIDO30AD10 TP (10:57)
[2023-01-13] MEDS ORDERED: CYCL5TAB PO (10:57)
[2023-01-13 11:03] VITALS: BP 155/79; TEMP 98; O2SAT 99
== END 2023-01-13 11:04 | disposition home or self-care (01) ==
LOC: ER 09:23
DX: S29.012A Strain of muscle and tendon of back wall of thorax, initial encounter (principal); M25.512 Pain in left shoulder; I10 Essential (primary) hypertension; E11.9 Type 2 diabetes mellitus without complications; X58.XXXA Exposure to other specified factors, initial encounter; Y93.89 Activity, other specified; Y92.89 Other specified places as the place of occurrence of the external cause; Y99.8 Other external cause status
CPT/HCPCS: 99283; 96372; 73030; J1885

== ENCOUNTER 2023-07-04 21:21 | Emergency (ER) | payer OTHER, BC ==
[~2023-07-04] VITALS: Ht 172.7 cm; Wt 79.4 kg
[~2023-07-04 21:21] MED LIST changes: +CYCL5TAB PO; +IBUP-1955 PO; +LIDO30AD10 TP
[2023-07-04] MEDS ORDERED: MORPHINE SULFATE INJ 2 MG/ML DISP.SYRIN ONE ×2 (22:08→22:14)
[2023-07-04] MEDS: MORPHINE SULFATE INJ 2 MG/ML DISP.SYRIN IM ONE (22:14)
[2023-07-05] MEDS ORDERED: IBUP-1955 PO (00:05)
[2023-07-05] MEDS ORDERED: ACET-2605 PO (00:05)
[2023-07-05] MEDS ORDERED: HYDR-4209 PO (00:05)
[2023-07-05 00:25] VITALS: BP 121/81; TEMP 98.4; O2SAT 98
== END 2023-07-05 00:26 | disposition home or self-care (01) ==
LOC: ER 21:23
DX: S02.2XXA Fracture of nasal bones, initial encounter for closed fracture (principal); I10 Essential (primary) hypertension; Z86.79 Personal history of other diseases of the circulatory system; Y04.2XXA Assault by strike against or bumped into by another person, initial encounter; Y93.89 Activity, other specified; Y92.232 Corridor of hospital as the place of occurrence of the external cause; Y99.0 Civilian activity done for income or pay
CPT/HCPCS: 99285; 70450; 96372; 70486; J2270

== ENCOUNTER 2024-06-06 08:56 | Outpatient (CLI) | payer BC ==
[~2024-06-06 08:56] MED LIST changes: +ACET-2605 PO; +HYDR-4209 PO
[2024-06-06 09:55] LABS: BASOPHILS # (AUTO) 0.1 K/uL (0.0-0.2); BASOPHILS % (AUTO) 1.1 % (0.0-2.0); EOSINOPHILS # (AUTO) 0.3 K/uL (0.0-0.7); EOSINOPHILS % (AUTO) 3.7 % (0.0-6.0); HEMATOCRIT 46 % (39-51); HEMOGLOBIN 15.9 g/dL (13.5-17.5); LYMPHOCYTES # (AUTO) 1.6 K/uL (0.8-4.8); MEAN CORPUSCULAR HEMOGLOBIN 32 PG (26.0-33.0); MEAN CORPUSCULAR HGB CONC 34 g/dl (31.0-36.0); MEAN CORPUSCULAR VOLUME 94 fL (80-96); MONOCYTES # (AUTO) 0.6 K/uL (0.1-1.30); MONOCYTES % (AUTO) 8.2 % (2.0-12.0); NEUTROPHILS # (AUTO) 5.2 K/uL (1.8-8.9); PLATELET COUNT (AUTO) 201 K/uL (150-450); RED BLOOD CELL COUNT(AUTO) 4.94 MIL/uL (4.5-6.0); RED CELL DISTRIBUTION WIDTH 13.5 % (11.5-15.0); WHITE BLOOD COUNT (AUTO) 7.8 K/uL (4.3-11.0)
[2024-06-06 10:01] LABS: APPEARANCE,URINE CLEAR (CLEAR); BILIRUBIN,URINE NEGATIVE (NEGATIVE); BLOOD, URINE NEGATIVE Ery/uL (NEGATIVE); COLOR,URINE YELLOW (YELLOW); KETONES,URINE NEGATIVE (NEGATIVE); LEUKOCYTE ESTERASE ,URINE NEGATIVE (NEGATIVE); NITRITE, URINE NEGATIVE (NEGATIVE); PROTEIN,URINE NEGATIVE (NEGATIVE); UGLUCOSE TRACE mg/dL (NEGATIVE); UROBILINOGEN,URINE 0.2 EU/dL (0.2)
[2024-06-06 10:06] LABS: ADD URINE CULTURE NO; BACTERIA,URINE Rare /HPF (None Seen); RBC,URINE 0-2 /HPF (0-2); SQUAMOUS EPITHELIAL CELL,UR 0-2 /HPF (None Seen); WBC,URINE 0-2 /HPF (0-3)
[2024-06-06 10:55] LABS: BILIRUBIN,TOTAL 1.3 mg/dL (0.2-1.0); CALCIUM, SERUM 8.9 mg/dL (8.5-10.1); POTASSIUM 3.7 mmol/L (3.5-5.1)
[2024-06-06 11:17] LABS: FREE T4 (FREE THYROXINE) 1.08 ng/dL (0.76-1.46); PROSTATE SPECIFIC ANTIGEN SCR 1.01 ng/mL (0.00-4.00); THYROID STIMULATING HORMONE 1.72 uIU/mL (0.358-3.74); URIC ACID 4.6 mg/dL (2.6-7.2)
[2024-06-07 05:10] LABS: FOLIC ACID 10.9 ng/mL (>3.0)
== END 2024-06-06 23:59 | disposition home or self-care (01) ==
LOC: LAB 08:56
PROVIDERS: ATTEND Legal Medicine
DX: E11.9 Type 2 diabetes mellitus without complications (principal); R53.1 Weakness; N40.0 Benign prostatic hyperplasia without lower urinary tract symptoms; E55.9 Vitamin D deficiency, unspecified; E03.9 Hypothyroidism, unspecified; Z00.00 Encounter for general adult medical examination without abnormal findings; D64.9 Anemia, unspecified
CPT/HCPCS: 36415; 80053-TC; 80061-TC; 81001; 82306; 82607-TC; 82728-TC; 83540-TC; 84153-TC; 84403; 84439-TC; 84443-TC; 84550-TC; 85025-TC